=== PATIENT | male | born 1955 | race Caucasian/White ===

== ENCOUNTER 2020-05-13 19:53 | Inpatient (IN) | payer MEDICARE, BC, SELFPAY ==
[2020-05-13 20:00] VITALS: BP 144/76; PULSE 104; RESP 16; TEMP 36.6; O2SAT 100; BMI 27.2
[2020-05-13 22:28] VITALS: BP 132/84; PULSE 99; RESP 17; TEMP 36.8; O2SAT 98
--- NOTE | 2020-05-13 22:37 | ED.ABDPAIN ---
HPI - Abdominal Pain General Chief Complaint: Abdominal Pain Stated Complaint: ?hernia Time Seen by Provider: 05/13/20 22:34 Source: patient Mode of arrival: ambulatory Limitations: no limitations History of Present Illness HPI narrative: This is a 65-year-old male without significant past medical history who presents with worsening right inguinal pain for the past 2 weeks and a swelling at the left inguinal region without associated fevers, chills, nausea, vomiting, obstipation, and reports that he is able to continue having bowel movements and denies any urinary pain/ burning / frequency. He states that he had his left inguinal hernia repaired in November and that this swelling on the right he has been able to reduce on occasion by lying on his back but it has become increasingly painful and today reports sharp pain. Last meal was 5 hours ago. Related Data Home Medications Medication Instructions Recorded Confirmed clonazepam 1 tab PO TID PRN 05/14/20 05/14/20 dextroamphetamine-amphetamine 2 tab PO BID 05/14/20 05/14/20 lamotrigine 2 tab PO DAILY 05/14/20 05/14/20 Allergies Allergy/AdvReac Type Severity Reaction Status Date / Time flaxseed [FLAXSEED] Allergy Unknown SWELLING Verified 05/14/20 00:41 Sulfa (Sulfonamide Allergy Unknown UNKNOWN Verified 05/14/20 00:41 Antibiotics) [SULFA (SULFONAMIDE ANTIBIOTICS)] Review of Systems Review of Systems Pertinent positives and negatives as stated in HPI 10 point review of systems is otherwise negative. Physical Exam Vital Signs: Vital Signs: Vital Signs Temp Pulse Resp BP Pulse Ox 05/14/20 00:32 85 18 119/75 96 05/13/20 22:28 98.3 F 99 17 132/84 98 05/13/20 20:00 97.8 F 104 H 16 144/76 H 100 Body Mass Index 27.2 VITAL SIGNS: Reviewed. GENERAL: Well developed, well nourished, in no acute distress. HEAD: Normocephalic/atraumatic, EYES: PERRLA, EOMI intact without pain, no nystagmus/pallor/icterus noted EARS: Ext canals without abnormality, TMs non-bulging and non-erythematous NOSE: Nares patent bilateral OROPHARYNX: no oral lesions noted, posterior pharynx clear and non-erythematous without noted tonsillar enlargement/erythema/exudates NECK: Supple, no adenopathy LUNGS: Normal breath sounds. No adventitious sounds or accessory muscle use. SpO2<100> CARDIOVASCULAR: Regular rate and rhythm without noted murmurs, no JVD or lower extremity edema. ABDOMEN: Soft, non-tender, non-distended with bowel sounds. No rigidity. No guarding. 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 MUSCULOSKELETAL: No tenderness, deformities, or effusions noted on gross inspection. EXTREMITIES: No cyanosis, clubbing or edema. SKIN: Inspection of the skin reveals no rashes, ulcerations, jaundice, pallor, or petechiae. NEUROLOGIC: Alert and oriented x 4. Strength and sensation to light touch were grossly intact x 4. Course Course Course Narrative: This is a 65-year-old male with history and clinical presentation consistent with right inguinal hernia possibly strangulated or incarcerated , but doubt obstructed. On review of all investigations there is no evidence of acute abnormalities other than a lactic acidosis which by proxy supports the idea that this hernia may be strangulating. However, on CT scan there is no evidence of free fluid, obstruction, or appearance of bowel loops within hernial sac. Will discuss the case with surgery since patient is clearly symptomatic when in any other position other than recumbent and would likely benefit from repair. 0030: I discussed the case with Dr. Ya and he agrees with admission. Patient was then informed of the plan. MDM - Abdominal Pain Lab Data Result diagrams: 05/13/20 22:51 05/13/20 22:51 Labs: Lab Results 05/13/20 05/13/20 05/13/20 Range/Units 22:51 22:51 22:51 WBC 7.6 (4.8-10.8) X10*3/uL RBC 3.98 L (4.60-5.80) X10*6/uL Hgb 11.8 L (14.0-18.0) g/dl Hct 37.8 L (42-52) % MCV 95.0 (80-98) fL MCH 29.6 (27.0-33.0) pg MCHC 31.2 (31.0-36.0) g/dl RDW 16.0 (11.0-16.0) % Plt Count 193 (160-400) X10*3/uL MPV 9.9 (9.4-12.4) fL Immature Gran % (Auto) 0.1 (0.0-0.4) % Neut % (Auto) 59.4 (45-73) % Lymph % (Auto) 28.8 (20-40) % [place] % (Auto) 9.9 (2-11) % Eos % (Auto) 1.4 (0-4) % Baso % (Auto) 0.4 (0-2) % Lymph # (Auto) 2.2 (1.2-4.9) X10*3/uL [place] # (Auto) 0.8 (0.1-1.2) X10*3/uL Eos # (Auto) 0.1 (0.0-0.4) X10*3/uL Baso # (Auto) 0.0 (0.0-0.2) X10*3/uL Abs Immat Gran (auto) 0.01 (0.00-0.03) X10*3/uL Absolute Neuts (auto) 4.5 (2.0-8.3) X10*3/uL Absolute Nucleated RBC 0.000 (0.0-0.012) X10*3/uL Nucleated RBC % (auto) 0.0 (0.0-0.2) /100WBC PT 11.4 (10.8-13.0) SEC INR 1.0 (0.9-1.1) Sodium 137 (135-145) mmol/L Potassium 3.9 (3.3-5.1) mmol/l Chloride 102 (96-108) mmol/L Carbon Dioxide 23 (22-29) mmol/L Anion Gap 16 (12-20) BUN 14 (9-16) mg/dL Creatinine 0.80 (0.5-1.4) mg/dL Estim Creat Clear Calc 95.0 Estimated GFR > 60 Random Glucose 148 H (60-115) mg/dL Lactic Acid (0.5-2.0) mmol/L Calcium 8.2 L (8.4-10.2) mg/dL Total Bilirubin 0.6 (0.0-1.0) mg/dL AST 55 H (5-37) U/L ALT 65 H (0-40) U/L Alkaline Phosphatase 68 (39-117) U/L Total Protein 6.8 (6.5-8.0) g/dL Albumin 4.1 (3.5-5.0) g/dL 05/13/20 Range/Units 22:51 WBC (4.8-10.8) X10*3/uL RBC (4.60-5.80) X10*6/uL Hgb (14.0-18.0) g/dl Hct (42-52) % MCV (80-98) fL MCH (27.0-33.0) pg MCHC (31.0-36.0) g/dl RDW (11.0-16.0) % Plt Count (160-400) X10*3/uL MPV (9.4-12.4) fL Immature Gran % (Auto) (0.0-0.4) % Neut % (Auto) (45-73) % Lymph % (Auto) (20-40) % [place] % (Auto) (2-11) % Eos % (Auto) (0-4) % Baso % (Auto) (0-2) % Lymph # (Auto) (1.2-4.9) X10*3/uL [place] # (Auto) (0.1-1.2) X10*3/uL Eos # (Auto) (0.0-0.4) X10*3/uL Baso # (Auto) (0.0-0.2) X10*3/uL Abs Immat Gran (auto) (0.00-0.03) X10*3/uL Absolute Neuts (auto) (2.0-8.3) X10*3/uL Absolute Nucleated RBC (0.0-0.012) X10*3/uL Nucleated RBC % (auto) (0.0-0.2) /100WBC PT (10.8-13.0) SEC INR (0.9-1.1) Sodium (135-145) mmol/L Potassium (3.3-5.1) mmol/l Chloride (96-108) mmol/L Carbon Dioxide (22-29) mmol/L Anion Gap (12-20) BUN (9-16) mg/dL Creatinine (0.5-1.4) mg/dL Estim Creat Clear Calc Estimated GFR Random Glucose (60-115) mg/dL Lactic Acid 2.9 H* (0.5-2.0) mmol/L Calcium (8.4-10.2) mg/dL Total Bilirubin (0.0-1.0) mg/dL AST (5-37) U/L ALT (0-40) U/L Alkaline Phosphatase (39-117) U/L Total Protein (6.5-8.0) g/dL Albumin (3.5-5.0) g/dL Discharge Plan Discharge Clinical Impression: Hernia, inguinal, right Patient Disposition: Admitted As Inpatient [facility] Past Medical History Source: nursing notes reviewed Medical History Achilles rupture, left Appendicitis Depression Inguinal hernia Surgical History Previous back surgery Social History Social History Smoking Status: Never smoker Use of substances other than those prescribed or required for medical reasons: No Advance Directives: No Advance Directives Information Provided: Yes
[2020-05-13 23:00] LABS: MANUAL DIFF FLAG NO
[2020-05-13 23:01] LABS: Basophils Percent Auto 0.4 % (0-2); Eosinophils Absolute Auto 0.1 X10*3/uL (0.0-0.4); Eosinophils Percent Auto 1.4 % (0-4); Hematocrit 37.8 % (42-52); Hemoglobin 11.8 g/dl (14.0-18.0); Imm Gran Abs Auto 0.01 X10*3/uL (0.00-0.03); Imm Gran Pct Auto 0.1 % (0.0-0.4); Lymphocytes Absolute Auto 2.2 X10*3/uL (1.2-4.9); Lymphocytes Percent Auto 28.8 % (20-40); Mean Corpuscular HGB Conc 31.2 g/dl (31.0-36.0); Mean Corpuscular Hemoglobin 29.6 pg (27.0-33.0); Mean Platelet Volume 9.9 fL (9.4-12.4); Monocytes Absolute Auto 0.8 X10*3/uL (0.1-1.2); Monocytes Percent Auto 9.9 % (2-11); Neutrophils Absolute Auto 4.5 X10*3/uL (2.0-8.3); Neutrophils Percent Auto 59.4 % (45-73); Platelet Count 193 X10*3/uL (160-400); Red Blood Count 3.98 X10*6/uL (4.60-5.80); White Blood Count 7.6 X10*3/uL (4.8-10.8)
[2020-05-13] MEDS: Ketorolac Tromethamine 15 MG/ML VIAL IVPUSH (23:02)
[2020-05-13] MEDS: Acetaminophen 325 MG TABLET 975 MG PO (23:02)
[2020-05-13 23:08] LABS: Prothrombin Time 11.4 SEC (10.8-13.0)
[2020-05-13 23:24] LABS: Alanine Aminotransferase 65 U/L (0-40); Albumin Level 4.1 g/dL (3.5-5.0); Alkaline Phosphatase 68 U/L (39-117); Anion Gap 16 (12-20); Aspartate Amino Transferase 55 U/L (5-37); Bilirubin Total 0.6 mg/dL (0.0-1.0); Blood Urea Nitrogen 14 mg/dL (9-16); Calcium 8.2 mg/dL (8.4-10.2); Carbon Dioxide 23 mmol/L (22-29); Chloride 102 mmol/L (96-108); Estimated Glomerular Filt Rate > 60; Glucose Random 148 mg/dL (60-115); Potassium 3.9 mmol/l (3.3-5.1); Sodium 137 mmol/L (135-145); Total Protein 6.8 g/dL (6.5-8.0)
--- NOTE | 2020-05-13 23:26 | CT_ITS ---
EXAMINATION: CT ABDOMEN AND PELVIS WITH CONTRAST CLINICAL INFORMATION: Right inguinal hernia and pain. COMPARISON: 11/16/2019. TECHNIQUE: Contiguous axial thin section helical images of the abdomen and pelvis were performed following the administration of 85 mL of intravenous Omnipaque 350. The data set was reformatted in the coronal and sagittal planes and reviewed on an independent workstation. DLP: 666 mGy-cm. FINDINGS: The visualized lung bases are clear. The visualized portions of the heart are unremarkable. There is a large hiatal hernia. There are small bilateral Bochdalek hernias. The liver is of normal size and diffuse decreased attenuation without focal lesions nor intrahepatic biliary ductal dilation. A normal gallbladder is identified. There is no wall thickening or discernible pericholecystic fluid. The spleen, pancreas, adrenal glands are unremarkable. Both kidneys are of normal size and attenuation without hydronephrosis or nephrolithiasis. Following the administration of IV contrast, prompt symmetric nephrograms are displayed. There is no abdominal free fluid. There is neither mesenteric nor retroperitoneal lymphadenopathy. There is diverticulosis without evidence of diverticulitis; otherwise, unremarkable unopacified loops of small and large bowel are identified. There is no pelvic free fluid. The urinary bladder is unremarkable. There is neither pelvic nor inguinal lymphadenopathy. Bone windows: Neither sclerotic nor lytic bone lesions are identified. A right hip prosthesis is intact. CT/CT abdomen pelvis w con IMPRESSION: No evidence for acute abdominal or pelvic inflammatory or infectious processes. Hepatic steatosis. Hiatal hernia. Diverticulosis without evidence of diverticulitis. Automated exposure control (Care Dose) Adjustment of the mA and/or kv according to patient size (this includes techniques or standardized protocols for targeted exams where dose is matched to indication / reason for exam; i.e. extremities or head).
[2020-05-13 23:31] LABS: Lactic Acid 2.9 mmol/L (0.5-2.0)
[2020-05-13] MEDS: iohexoL 350 MG/ML 100 ML INFUS..BTL 85 ML IV (23:59)
[2020-05-14] VITALS (13 sets, daily range): BP systolic 119–154; BP diastolic 72–88; PULSE 54–100; RESP 14–20; TEMP 35.9–36.8; O2SAT 93–98; BMI 27.2
[2020-05-14] MEDS: 0.9 % Sodium Chloride 1,000 ML 1000 ML IV (00:31)
--- NOTE | 2020-05-14 00:33 | PC.NURSE ---
PT MEDICATED PER MAR, IVF HUNG AND INFUSING WITHOUT DIFFICULTY. AWAITING RESULTS. AWARE OF PLAN OF CARE.
[2020-05-14 00:53] LABS: Glucose Urine UA NEG (NEG); Leukocyte Esterase Urine NEG (NEG); Nitrite Urine NEG (NEG); Urine Blood NEG (NEG); Urine Ketones NEG (NEG); Urine Protein NEG (NEG-TRACE)
[2020-05-14 00:54] LABS: Appearance Urine CLEAR; Color Urine YELLOW
[2020-05-14 00:59] LABS: Reflex Lactate? Lactic Acid Added
[2020-05-14 02:07] LABS: ~Lactic Acid-LAB USE ONLY 1.6 mmol/L (0.5-2.0)
[2020-05-14] MEDS: Dextrose 5 % and 0.45 % NaCl 1,000 ML 100 ML IVCONT ×3 (02:26→23:33)
[2020-05-14] MEDS: Morphine Sulfate 4 MG/ML CARTRIDGE 3 MG IVPUSH ×2 (02:33→06:03)
[2020-05-14 02:38] LABS: SARS COV2 PCR INHOUSE NEGATIVE (Negative)
--- NOTE | 2020-05-14 09:19 | MHC.CM.PN ---
pt lives c his elder parents for whom he cares for . he is independent in his care. 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 pt has a sister and brother that live in the area. his sister is now stepping up as caregiver for his parents during his hospitalization and recovery. one of his siblings will provide transportation at [place]. pt reports that he has had a hernia repair on the opposite side and is comfortable c the expectations of what he will have to go through c this repair and recover. pt denies the need for vna at ut. dc plan is home no svcs. cm to cont. to follow.
[2020-05-14] MEDS: clonazePAM 1 MG TABLET PO (09:26)
--- NOTE | 2020-05-14 10:21 | PM.HPGS ---
History of Present Illness History of Present Illness Chief complaint: RECURRENT INGUINAL HERNIA Narrative: Alexei Kennedy is a 65 year old male Presenting with complaints of a lump in the right groin which has been present for several months but has been increasing in severity. He has a previous history of a left inguinal hernia repaired several years ago with mesh. He feels the current symptoms are similar. He has been able to reduce the hernia up until yesterday when the hernia was not reducible he subsequently presented to the emergency department with complaints of increased pain on a painful lump. In the emergency department he was noted to have a large right inguinal hernia without overlying skin changes. After giving the patient some pain medication the hernia was able to be reduced. Subsequent CT of the abdomen and pelvis confirmed a right inguinal hernia. He is admitted to the surgical service for treatment of this incarcerated right inguinal hernia. Review of Systems Constitutional: Constitutional: Denies chills, Denies fever(s), Denies headache(s) and Denies poor appetite ENT: Denies dizziness and Denies headache(s) Cardiovascular: Cardiovascular: Denies chest pain, Denies rapid heart rate, Denies palpitations and Denies slow heart rate Respiratory: Respiratory: Denies chest congestion, Denies cough, Denies pain on inspiration and Denies wheezing Gastrointestinal: Gastrointestinal: Reports abdominal pain, Denies bloating, Denies change in stool character, Denies constipation, Denies diarrhea, Denies nausea, Denies vomiting and Denies hematemesis Musculoskeletal: Musculoskeletal: Denies back pain, Denies arthralgias, Denies joint swelling and Denies numbness Integumentary/Breasts: Skin/Breast: Denies change in pigmentation, Denies erythema and Denies rash Neurologic: Denies confusion, Denies dizziness, Denies headache(s) and Denies numbness Psychiatric: Psychiatric: Denies anxiety, Denies confusion and Denies depression Endocrine: Endocrine: Denies palpitations Hematologic/Lymphatic: Hematologic/Lymphatic: Denies easy bleeding, Denies easy bruising and Denies lymphadenopathy Allergic/Immunologic: Allergic/Immunologic: Denies wheezing PMFSH Past Medical History Medical History Achilles rupture, left Appendicitis Depression Inguinal hernia Surgical History Surgical History Previous back surgery Social History Social History Household Members: Family Housing: Apartment Smoking Status: Never smoker Use of substances other than those prescribed or required for medical reasons: No Have you been hit, kicked, punched, or otherwise hurt by someone within the past year? If so, by whom?: No Is there a partner from a previous relationship who is making you feel unsafe now?: No Advance Directives: No Advance Directives Information Provided: Yes Do you have thoughts of harming others: None Recently lost weight without trying: No service: No Current occupational status: retired [employer] Allergies Allergy/AdvReac Type Severity Reaction Status Date / Time flaxseed [FLAXSEED] Allergy Unknown SWELLING Verified 05/14/20 00:41 Sulfa (Sulfonamide Allergy Unknown UNKNOWN Verified 05/14/20 00:41 Antibiotics) [SULFA (SULFONAMIDE ANTIBIOTICS)] Home Medications Medication Instructions Recorded Confirmed Type clonazepam 1 tab PO TID PRN 05/14/20 05/14/20 History dextroamphetamine-amphetamine 2 tab PO BID 05/14/20 05/14/20 History lamotrigine 2 tab PO DAILY 05/14/20 05/14/20 History Physical Exam Vital Signs: Vital Signs: Vital Signs Temp Pulse Resp BP Pulse Ox 05/14/20 07:58 64 18 138/79 97 05/14/20 07:52 97.5 F 68 18 138/79 97 05/14/20 02:06 98.2 F 69 19 123/75 95 05/14/20 00:32 85 18 119/75 96 05/13/20 22:28 98.3 F 99 17 132/84 98 05/13/20 20:00 97.8 F 104 H 16 144/76 H 100 Body Mass Index 27.2 Const: General: No confusion Nutritional Appearance: well nourished Orientation/consciousness: No confusion Eyes: Sclerae: sclerae normal EOM: EOMs intact bilaterally Neck: Neck: Yes normal visual inspection Resp: Effort & Inspection: normal respiratory effort, no cough and no respiratory distress Cardio: Jugular venous distension: no JVD Rate: regular rate Rhythm: regular rhythm GI: Other: Palpable tenderness in the right groin with hernia noted with Valsalva maneuvers. The hernia does reduce with light pressure. No hernia noted on the left side. Well-healed incision is noted in that location. Inspection: Yes normal to inspection Palpation (GI): Soft to palpation, Tenderness to palpation present (GI), no guarding and not rigid Percussion: Yes normal to percussion Auscultation: normal bowel sounds Abdomen image: 1. Site of right inguinal hernia Skin: General skin exam: dry skin Rashes: no rashes Neuro: General: No confusion Extrem: General: Yes no clubbing, cyanosis or edema Right upper extremity: normal capillary refill Left upper extremity: full ROM Results Results Labs: Short CBC 05/13/20 Range/Units 22:51 WBC 7.6 (4.8-10.8) X10*3/uL Hgb 11.8 L (14.0-18.0) g/dl Hct 37.8 L (42-52) % Plt Count 193 (160-400) X10*3/uL BMP 05/13/20 22:51 Sodium 137 Potassium 3.9 Chloride 102 Carbon Dioxide 23 BUN 14 Creatinine 0.80 Calcium 8.2 L Liver Function 05/13/20 Range/Units 22:51 Total Bilirubin 0.6 (0.0-1.0) mg/dL AST 55 H (5-37) U/L ALT 65 H (0-40) U/L Alkaline Phosphatase 68 (39-117) U/L Albumin 4.1 (3.5-5.0) g/dL Urine 05/14/20 Range/Units 00:46 Urine Color YELLOW Urine Appearance CLEAR Urine pH 6.0 (5.0-8.0) Ur Specific [place] 1.010 (1.005-1.025) Urine Protein NEG (NEG-TRACE) MG/DL Urine Glucose (UA) NEG (NEG) MG/DL Assessment and Plan (1) Hernia, inguinal, right: Status: Acute Patient presents with an incarcerated right inguinal hernia that was reduced in the emergency department. CT of the abdomen and pelvis confirms the right inguinal hernia with no incarceration of bowel. I recommended repair of this right inguinal hernia with mesh and after discussion of the procedure, risks, and alternatives, consents to the surgery. He will be added onto the OR schedule for today.
[2020-05-14] MEDS: ceFAZolin Sodium/Dextrose,Iso 2 GM/50 ML PIGGYBACK IV (11:40)
--- NOTE | 2020-05-14 11:50 | HO.ANESPROP2 ---
FORM[facility]LY [facility], [facility] Past Medical History Medical History Achilles rupture, left Appendicitis Depression Inguinal hernia Surgical History Surgical History History of right hip replacement Previous back surgery Social History Social History Household Members: Family Housing: Apartment Smoking Status: Never smoker Use of substances other than those prescribed or required for medical reasons: No Currently Displaying Signs/Symptoms of Drug Intoxication Withdrawal: No Have you been hit, kicked, punched, or otherwise hurt by someone within the past year? If so, by whom?: No Is there a partner from a previous relationship who is making you feel unsafe now?: No Advance Directives: No Advance Directives Information Provided: Yes Do you have thoughts of harming others: None Recently lost weight without trying: No service: No Current occupational status: retired Meds Allergies Allergy/AdvReac Type Severity Reaction Status Date / Time flaxseed [FLAXSEED] Allergy Unknown SWELLING Verified 05/14/20 00:41 Sulfa (Sulfonamide Allergy Unknown UNKNOWN Verified 05/14/20 00:41 Antibiotics) [SULFA (SULFONAMIDE ANTIBIOTICS)] Home Medications Medication Instructions Recorded Confirmed Type clonazepam 1 tab PO TID PRN 05/14/20 05/14/20 History dextroamphetamine-amphetamine 2 tab PO BID 05/14/20 05/14/20 History lamotrigine 2 tab PO DAILY 05/14/20 05/14/20 History Exam Exam Date and Time: May 14, 2020 1150 Height,Weight and Vital Signs: Height 5 ft 10 in Weight 86.183 kg Last Vital Signs Temp 97.2 F 05/14/20 11:11 Pulse 60 05/14/20 11:11 Resp 16 05/14/20 11:11 BP 133/72 05/14/20 11:11 Pulse Ox 98 05/14/20 11:11 Pertinent Lab Results Pertinent Lab Results: Laboratory Tests 05/13/20 05/13/20 05/13/20 22:51 22:51 22:51 WBC 7.6 RBC 3.98 L Hgb 11.8 L Hct 37.8 L MCV 95.0 MCH 29.6 MCHC 31.2 RDW 16.0 Plt Count 193 MPV 9.9 Immature Gran % (Auto) 0.1 Neut % (Auto) 59.4 Lymph % (Auto) 28.8 [place] % (Auto) 9.9 Eos % (Auto) 1.4 Baso % (Auto) 0.4 Lymph # (Auto) 2.2 [place] # (Auto) 0.8 Eos # (Auto) 0.1 Baso # (Auto) 0.0 Abs Immat Gran (auto) 0.01 Absolute Neuts (auto) 4.5 Absolute Nucleated RBC 0.000 Nucleated RBC % (auto) 0.0 PT 11.4 INR 1.0 Sodium 137 Potassium 3.9 Chloride 102 Carbon Dioxide 23 Anion Gap 16 BUN 14 Creatinine 0.80 Estim Creat Clear Calc 95.0 Estimated GFR > 60 Random Glucose 148 H Lactic Acid Lactic Acid Fup @ 2Hr Calcium 8.2 L Total Bilirubin 0.6 AST 55 H ALT 65 H Alkaline Phosphatase 68 Total Protein 6.8 Albumin 4.1 Urine Color Urine Appearance Urine pH Ur Specific [place] Urine Protein Urine Glucose (UA) Urine Ketones Urine Blood Urine Nitrite Ur Leukocyte Esterase Coronavirus (PCR) 05/13/20 05/14/20 05/14/20 22:51 00:46 01:21 WBC RBC Hgb Hct MCV MCH MCHC RDW Plt Count MPV Immature Gran % (Auto) Neut % (Auto) Lymph % (Auto) [place] % (Auto) Eos % (Auto) Baso % (Auto) Lymph # (Auto) [place] # (Auto) Eos # (Auto) Baso # (Auto) Abs Immat Gran (auto) Absolute Neuts (auto) Absolute Nucleated RBC Nucleated RBC % (auto) PT INR Sodium Potassium Chloride Carbon Dioxide Anion Gap BUN Creatinine Estim Creat Clear Calc Estimated GFR Random Glucose Lactic Acid 2.9 H* Lactic Acid Fup @ 2Hr Calcium Total Bilirubin AST ALT Alkaline Phosphatase Total Protein Albumin Urine Color YELLOW Urine Appearance CLEAR Urine pH 6.0 Ur Specific [place] 1.010 Urine Protein NEG Urine Glucose (UA) NEG Urine Ketones NEG Urine Blood NEG Urine Nitrite NEG Ur Leukocyte Esterase NEG Coronavirus (PCR) NEGATIVE 05/14/20 01:44 WBC RBC Hgb Hct MCV MCH MCHC RDW Plt Count MPV Immature Gran % (Auto) Neut % (Auto) Lymph % (Auto) [place] % (Auto) Eos % (Auto) Baso % (Auto) Lymph # (Auto) [place] # (Auto) Eos # (Auto) Baso # (Auto) Abs Immat Gran (auto) Absolute Neuts (auto) Absolute Nucleated RBC Nucleated RBC % (auto) PT INR Sodium Potassium Chloride Carbon Dioxide Anion Gap BUN Creatinine Estim Creat Clear Calc Estimated GFR Random Glucose Lactic Acid Lactic Acid Fup @ 2Hr 1.6 Calcium Total Bilirubin AST ALT Alkaline Phosphatase Total Protein Albumin Urine Color Urine Appearance Urine pH Ur Specific [place] Urine Protein Urine Glucose (UA) Urine Ketones Urine Blood Urine Nitrite Ur Leukocyte Esterase Coronavirus (PCR) Airway Mallampati Class: II TM Dist: >3cm Neck ROM: Full Assessment and Plan Assessment Anesthesia Assessment: Anesthesia Plan Discussed and Chart Reviewed Final Anesthetic Review NPO: Yes ASA Class: II Final Preanesthetic Review: No Changes in Pt Med Stat, Meds/Allgs Chart Reviewed, Consent Obtained/Reviewed and Anes Risks/Benef Reviewed Patient Risk: Low Procedure Risk: Low Assessment/Block/Sedation in SS: Assess/Block/Sedation-SS Anesthetic Plan Anesthetic Plan: GA Disposition: Standard PACU
--- NOTE | 2020-05-14 12:20 | MHC.SHP ---
Pre-Procedural Eval Section A The patient is an INPATIENT: Yes Changes since office visit: Yes Patient answered all questions; No Cold of Flu in the past 2 weeks, No New Medical Problems and No Changes in Medication The History & Physical has been completed within 30 days and I have reviewed it.: Yes Section B Chief Complaint: RECURRENT INGUINAL HERNIA Allergies: Allergies Allergy/AdvReac Type Severity Reaction Status Date / Time flaxseed [FLAXSEED] Allergy Unknown SWELLING Verified 05/14/20 00:41 Sulfa (Sulfonamide Allergy Unknown UNKNOWN Verified 05/14/20 00:41 Antibiotics) [SULFA (SULFONAMIDE ANTIBIOTICS)] Plan Diagnosis/Plan: Unchanged Patient has been examined and remains a candidate for the planned procedure
--- NOTE | 2020-05-14 13:41 | PM.OP ---
Brief Operative Note Date of procedure: 05/14/20 Pre-op diagnosis: Incarcerated right inguinal hernia Post-op diagnosis: same Procedure: Repair of right inguinal hernia with mesh Implants: PHS extended Surgeon: Aman Ya MD Anesthesia: GLMA Estimated blood loss (mL): 10 Pathology: other (lipoma, hernia sac) Condition: stable Disposition: PACU
--- NOTE | 2020-05-14 13:44 | W.PM.OPN ---
Operative Note Operative Note Narrative: Preoperative diagnosis: Right inguinal hernia, incarcerated Postoperative diagnosis: Same Procedure: Repair of right inguinal hernia with mesh Surgeon: Aman Ya MD Business Development Executive: None Anesthesia: General LMA Indications for procedure: 65-year-old male with a previous history of a left inguinal hernia now presenting with a right inguinal hernia which is causing discomfort and was found to be non reducible. He presented to the emergency department at which point was reduced after administering pain medication. He presents now for repair of this incarcerated hernia. Operative findings: Patient was found to have a large indirect right inguinal hernia without incarcerated bowel. There is also weakness of the inguinal floor. Specimen: Hernia sac, lipoma of the cord Estimated blood loss: 10 mL Complications: None Procedure details: The patient was brought to the OR placed in a supine position. After administering general anesthesia the patient's abdomen was prepped with ChloraPrep and draped in a sterile fashion. A surgical time-out was called and consent confirmed. Patient received preoperative antibiotics and Venodyne boots were place. Local anesthesia consisting of 0.75% Sensorcaine with epinephrine was infiltrated above the right inguinal ligament. Incision was then made with a 15 blade carried out through subcutaneous tissue past Alcira's fashion up to the external oblique aponeurosis. This was then incised with scalpel widened with the Metzenbaum scissors. Spermatic cord was then dissected free from the inguinal canal and retracted with a Pop drain. A large indirect hernia was immediately evident. Fibers of the cremasteric muscle were and a large lipoma of the cord removed from the spermatic cord. This was ligated at the base and excised. This was sent as a specimen. Hernia sac was then identified slightly superior to this. The sac was dissected free down to the internal ring open and its contents reduced. The sac was then ligated with a 0 Polysorb suture and excised. This was sent as a specimen as well. Attention was then directed to the floor of the inguinal canal. Fibers of the internal oblique aponeurosis and transversalis aponeurosis were divided between Allis clamps. The preperitoneal space was then entered widened with the open Ray-Aida 4 x 4. a an extended PHS large mesh was obtained. The circular underlay was placed in the preperitoneal space and the overlay secured to the inguinal canal at the pubic tubercle, conjoined tendon, and shelving edge of the inguinal ligament using 0 Polysorb sutures. A slit was made in the mesh and encircled around the spermatic cord at the internal ring. This was secured to the shelving edge of the inguinal ligament using 0 Polysorb suture. The incision was then irrigated with saline solution and suctioned dry. Additional local anesthesia was infiltrated the subcutaneous tissue at this time. External aponeurosis was then closed using a 2-0 Polysorb suture. Alcira's fascia and dermis were reapproximated using interrupted 3-0 Polysorb sutures. Skin was then closed using a running subcuticular 4-0 Polysorb suture. The patient tolerated the procedure well. Sponge, instrument, and needle counts were reported as correct. Patient was transferred to PACU in stable condition.
--- NOTE | 2020-05-14 16:00 | P.CONIM_ITS ---
History of Present Illness Data of Consult Service Date: 05/14/20 <SUZANNE Griffith - Last Filed: 05/14/20 16:18> Requesting physician: Aman Ya <SUZANNE Griffith - Last Filed: 05/14/20 16:18> Primary Care Provider: [facility] <SUZANNE Griffith - Last Filed: 05/14/20 16:18> HPI Reason for consult: alcohol use <SUZANNE Griffith - Last Filed: 05/14/20 16:18> this is a 65-year-old male who presented to the emergency department with abdominal pain. He has long-standing history inguinal hernia in the emergency department he was diagnosed with incarcerated inguinal hernia. he was admitted to the surgical service and taken to the OR for repair. the hospitalist service were consulted due to heavy alcohol use and concern for for possible withdrawal. Patient reports drinking 4 mixed drinks every other day. His last drink was 2 days ago. He denies any history of alcohol withdrawl in the past. currently has no specific complaints. <SUZANNE Griffith - Last Filed: 05/14/20 16:18> Review of Systems Review of Systems: Yes all other systems are reviewed and are negative <SUZANNE Griffith - Last Filed: 05/14/20 16:18> Constitutional: Constitutional: Denies chills <SUZANNE Griffith - Last Filed: 05/14/20 16:18> Cardiovascular: Cardiovascular: Denies chest pain, Denies palpitations and Denies dyspnea <SUZANNE Griffith - Last Filed: 05/14/20 16:18> Respiratory: Respiratory: Denies dyspnea <SUZANNE Griffith - Last Filed: 05/14/20 16:18> Endocrine: Endocrine: Denies palpitations <SUZANNE Griffith - Last Filed: 05/14/20 16:18> [facility] Medical History: Medical History (Updated 05/14/20 @ 16:06 by SUZANNE Griffith) Achilles rupture, left Alcohol use Appendicitis Depression Inguinal hernia <SUZANNE Griffith Last Filed: 05/14/20 16:18> Family History: Family History (Updated 05/14/20 @ 16:05 by SUZANNE Girffith) Other No history of heart disease <SUZANNE Griffith - Last Filed: 05/14/20 16:18> Family history: reviewed and not pertinent <SUZANNE Griffith - Last Filed: 05/14/20 16:18> Surgical History: Surgical History H/O right inguinal hernia repair History of right hip replacement Previous back surgery <SUZANNE Griffith - Last Filed: 05/14/20 16:18> Social History: Social History (Updated 05/14/20 @ 16:06 by SUZANNE Griffith) Household Members: Family Housing: Apartment Alcohol intake: current Smoking Status: Never smoker Use of substances other than those prescribed or required for medical reasons: No Currently Displaying Signs/Symptoms of Drug Intoxication Withdrawal: No Have you been hit, kicked, punched, or otherwise hurt by someone within the past year? If so, by whom?: No Is there a partner from a previous relationship who is making you feel unsafe now?: No Advance Directives: No Advance Directives Information Provided: Yes Do you have thoughts of harming others: None Do you have a plan to hurt others: No Plan Recently lost weight without trying: No service: No Current occupational status: retired <SUZANNE Griffith - Last Filed: 05/14/20 16:18> Meds Allergies/Adverse reactions: Allergies Allergy/AdvReac Type Severity Reaction Status Date / Time flaxseed [FLAXSEED] Allergy Unknown SWELLING Verified 05/14/20 00:41 Sulfa (Sulfonamide Allergy Unknown UNKNOWN Verified 05/14/20 00:41 Antibiotics) [SULFA (SULFONAMIDE ANTIBIOTICS)] <SUZANNE Griffith - Last Filed: 05/14/20 16:18> Home medications: Home Medications Medication Instructions Recorded Confirmed Type clonazepam 1 tab PO TID PRN 05/14/20 05/14/20 History dextroamphetamine-amphetamine 2 tab PO BID 05/14/20 05/14/20 History lamotrigine 2 tab PO DAILY 05/14/20 05/14/20 History <SUZANNE Griffith - Last Filed: 05/14/20 16:18> Physical Exam Vital Signs and Narrative: Vital Signs: Last Vital Signs Temp 97.1 F 05/14/20 15:11 Pulse 54 05/14/20 15:11 Resp 18 05/14/20 15:11 BP 139/87 05/14/20 15:11 Pulse Ox 93 05/14/20 15:11 Body Mass Index 27.2 <SUZANNE Griffith - Last Filed: 05/14/20 16:18> Const: Nutritional Appearance: well nourished <SUZANNE Griffith - Last Filed: 05/14/20 16:18> Orientation/consciousness: patient oriented x3 <SUZANNE Griffith - Last Filed: 05/14/20 16:18> HENMT: Head: Yes normocephalic and Yes atraumatic <SUZANNE Griffith - Last Filed: 05/14/20 16:18> Eyes: Sclerae: sclerae normal <SUZANNE Griffith - Last Filed: 05/14/20 16:18> Chest: Chest palpation & inspection: normal inspection of the chest <SUZANNE Griffith - Last Filed: 05/14/20 16:18> Resp: Effort & Inspection: normal respiratory effort and no respiratory distress <SUZANNE Griffith - Last Filed: 05/14/20 16:18> Auscultation: clear to auscultation bilaterally <SUZANNE Griffith - Last Filed: 05/14/20 16:18> Cardio: Rate: regular rate <SUZANNE Griffith - Last Filed: 05/14/20 16:18> Rhythm: regular rhythm <SUZANNE Griffith - Last Filed: 05/14/20 16:18> GI: Palpation (GI): Soft to palpation and nontender <SUZANNE Griffith - Last Filed: 05/14/20 16:18> Skin: General skin exam: no rashes or lesions noted <SUZANNE Griffith - Last Filed: 05/14/20 16:18> Neuro: General: patient oriented x3 <SUZANNE Griffith - Last Filed: 05/14/20 16:18> Cranial nerves: Yes CN's II-XII intact bilaterally and Yes Bilaterally intact EOM present <SUZANNE Griffith - Last Filed: 05/14/20 16:18> Extrem: General: Yes normal to inspection <SUZANNE Griffith - Last Filed: 05/14/20 16:18> Results Labs Labs: Laboratory Tests 05/13/20 05/13/20 05/13/20 22:51 22:51 22:51 WBC 7.6 RBC 3.98 L Hgb 11.8 L Hct 37.8 L MCV 95.0 MCH 29.6 MCHC 31.2 RDW 16.0 Plt Count 193 MPV 9.9 Immature Gran % (Auto) 0.1 Neut % (Auto) 59.4 Lymph % (Auto) 28.8 [place] % (Auto) 9.9 Eos % (Auto) 1.4 Baso % (Auto) 0.4 Lymph # (Auto) 2.2 [place] # (Auto) 0.8 Eos # (Auto) 0.1 Baso # (Auto) 0.0 Abs Immat Gran (auto) 0.01 Absolute Neuts (auto) 4.5 Absolute Nucleated RBC 0.000 Nucleated RBC % (auto) 0.0 PT 11.4 INR 1.0 Sodium 137 Potassium 3.9 Chloride 102 Carbon Dioxide 23 Anion Gap 16 BUN 14 Creatinine 0.80 Estim Creat Clear Calc 95.0 Estimated GFR > 60 Random Glucose 148 H Lactic Acid Lactic Acid Fup @ 2Hr Calcium 8.2 L Total Bilirubin 0.6 AST 55 H ALT 65 H Alkaline Phosphatase 68 Total Protein 6.8 Albumin 4.1 Urine Color Urine Appearance Urine pH Ur Specific [place] Urine Protein Urine Glucose (UA) Urine Ketones Urine Blood Urine Nitrite Ur Leukocyte Esterase Coronavirus (PCR) 05/13/20 05/14/20 05/14/20 22:51 00:46 01:21 WBC RBC Hgb Hct MCV MCH MCHC RDW Plt Count MPV Immature Gran % (Auto) Neut % (Auto) Lymph % (Auto) [place] % (Auto) Eos % (Auto) Baso % (Auto) Lymph # (Auto) [place] # (Auto) Eos # (Auto) Baso # (Auto) Abs Immat Gran (auto) Absolute Neuts (auto) Absolute Nucleated RBC Nucleated RBC % (auto) PT INR Sodium Potassium Chloride Carbon Dioxide Anion Gap BUN Creatinine Estim Creat Clear Calc Estimated GFR Random Glucose Lactic Acid 2.9 H* Lactic Acid Fup @ 2Hr Calcium Total Bilirubin AST ALT Alkaline Phosphatase Total Protein Albumin Urine Color YELLOW Urine Appearance CLEAR Urine pH 6.0 Ur Specific [place] 1.010 Urine Protein NEG Urine Glucose (UA) NEG Urine Ketones NEG Urine Blood NEG Urine Nitrite NEG Ur Leukocyte Esterase NEG Coronavirus (PCR) NEGATIVE 05/14/20 01:44 WBC RBC Hgb Hct MCV MCH MCHC RDW Plt Count MPV Immature Gran % (Auto) Neut % (Auto) Lymph % (Auto) [place] % (Auto) Eos % (Auto) Baso % (Auto) Lymph # (Auto) [place] # (Auto) Eos # (Auto) Baso # (Auto) Abs Immat Gran (auto) Absolute Neuts (auto) Absolute Nucleated RBC Nucleated RBC % (auto) PT INR Sodium Potassium Chloride Carbon Dioxide Anion Gap BUN Creatinine Estim Creat Clear Calc Estimated GFR Random Glucose Lactic Acid Lactic Acid Fup @ 2Hr 1.6 Calcium Total Bilirubin AST ALT Alkaline Phosphatase Total Protein Albumin Urine Color Urine Appearance Urine pH Ur Specific [place] Urine Protein Urine Glucose (UA) Urine Ketones Urine Blood Urine Nitrite Ur Leukocyte Esterase Coronavirus (PCR) <SUZANNE Griffith - Last Filed: 05/14/20 16:18> Imaging Radiologist's Impressions: Impressions Abdomen/Pelvis CT 05/13/20 23:26 IMPRESSION: No evidence for acute abdominal or pelvic inflammatory or infectious processes. Hepatic steatosis. Hiatal hernia. Diverticulosis without evidence of diverticulitis. Automated exposure control (Care Dose) Adjustment of the mA and/or kv according to patient size (this includes techniques or standardized protocols for targeted exams where dose is matched to indication / reason for exam; i.e. extremities or head). <SUZANNE Griffith - Last Filed: 05/14/20 16:18> Assessment and Plan (1) Alcohol use: Status: Inactive <SUZANNE Griffith - Last Filed: 05/14/20 16:18> (2) Hernia, inguinal, right: Status: Acute <SUZANNE Griffith - Last Filed: 05/14/20 16:18> this is a 65-year-old male with history of depression who presented to the emergency department with abdominal pain found to have incarcerated hernia now status post repair s/p incarcerated hernia repair - management per surgical service alcohol use patient denies daily alcohol use. Denies history of alcohol withdrawal. Does not appear to be in alcohol withdrawal at this time. Vital signs stable. - will start low-dose phenobarbital to prevent alcohol withdrawal. - will recheck BNP now, check magnesium - if significant electrolyte abnormalities or patient becomes tachycardic would consider transfer to telemetry mood patient no longer takes Xanax or Lamictal at home slight elevated in liver transaminases likely related to alcohol use -will trend thank you for allowing us to participate in the care of this patient. We will follow along with you this case was discussed with Dr. Freeman <SUZANNE Griffith - Last Filed: 05/14/20 16:18>
[2020-05-14] MEDS: PHENobarbitaL sodium 130 MG/ML VIAL 175 MG IM (16:54)
[2020-05-14 17:05] LABS: Anion Gap 11 (12-20); Blood Urea Nitrogen 11 mg/dL (9-16); Carbon Dioxide 30 mmol/L (22-29); Chloride 100 mmol/L (96-108); Creatinine Clr Calc Pharmacy 108.6; Estimated Glomerular Filt Rate > 60; Glucose Random 140 mg/dL (60-115); Magnesium 1.9 mg/dL (1.6-2.6); Potassium 4.9 mmol/l (3.3-5.1); Sodium 136 mmol/L (135-145)
[2020-05-14] MEDS: PHENobarbitaL sodium 130 MG/ML VIAL IM ×2 (20:28→23:33)
[2020-05-14] MEDS: Amphetamine Mixed Salts 20 MG TABLET 40 MG PO (20:28)
[2020-05-15] MEDS: Morphine Sulfate 4 MG/ML CARTRIDGE 3 MG IVPUSH ×3 (01:45→18:00)
[2020-05-15 03:40] VITALS: BP 135/83; PULSE 88; RESP 19; TEMP 36.3; O2SAT 98
--- NOTE | 2020-05-15 05:03 | PC.NURSE ---
There was wet noise sounds heard from pt lower lobes. O2 is 95%. No SOB. no respiratory distress. MD notified
[2020-05-15 06:51] LABS: Alanine Aminotransferase 49 U/L (0-40); Albumin Level 3.7 g/dL (3.5-5.0); Alkaline Phosphatase 55 U/L (39-117); Anion Gap 12 (12-20); Aspartate Amino Transferase 34 U/L (5-37); Bilirubin Direct 0.3 mg/dL (0.0-0.5); Bilirubin Total 0.5 mg/dL (0.0-1.0); Blood Urea Nitrogen 9 mg/dL (9-16); Calcium 7.7 mg/dL (8.4-10.2); Carbon Dioxide 24 mmol/L (22-29); Chloride 101 mmol/L (96-108); Creatinine Clr Calc Pharmacy 122.6; Estimated Glomerular Filt Rate > 60; Glucose Random 158 mg/dL (60-115); Potassium 4.2 mmol/l (3.3-5.1); Sodium 133 mmol/L (135-145); Total Protein 6.1 g/dL (6.5-8.0)
[2020-05-15 07:40] VITALS: BP 157/84; PULSE 70; RESP 18; TEMP 36.3; O2SAT 99
--- NOTE | 2020-05-15 09:23 | HO.POSTANES ---
Post Anesthesia Evaluation Post Anesthesia Evaluation Vital Signs: Vital Signs Temp Pulse Resp BP Pulse Ox 05/15/20 07:40 97.4 F 70 18 157/84 H 99 05/15/20 03:40 97.3 F 88 19 135/83 98 05/14/20 23:39 98.3 F 100 20 140/78 H 98 Anesthesia: General Mental Status: Awake Pain Control: Satisfactory Nausea/Vomiting: None Hydration: Adequate Anesthesia-Related Issues: No Anes. Related Issues
--- NOTE | 2020-05-15 09:29 | HO.PM.IMPN ---
Subjective Subjective Date of Service: 05/15/20 Interval History: Seen in f/u for med consult for alcohol dependency, at risk for withdrawal. Not withdrawing right now Review of Systems Gen: no fever Resp: no sob, no cough CV: no chest, no SEGUNDO, no leg edema GI: No n/v, no abd pain Neuro: No confusion Physical Exam Vital Signs: Vital Signs: Last Vital Signs Temp 97.4 F 05/15/20 07:40 Pulse 70 05/15/20 07:40 Resp 18 05/15/20 07:40 BP 157/84 H 05/15/20 07:40 Pulse Ox 99 05/15/20 07:40 Body Mass Index 27.2 Const: Nutritional Appearance: well nourished Orientation/consciousness: patient oriented x3 HENMT: Head: Yes normocephalic and Yes atraumatic Eyes: Sclerae: sclerae normal Chest: Chest palpation & inspection: normal inspection of the chest Resp: Effort & Inspection: normal respiratory effort and no respiratory distress Auscultation: clear to auscultation bilaterally Cardio: Rate: regular rate Rhythm: regular rhythm GI: Palpation (GI): Soft to palpation and nontender Skin: General skin exam: no rashes or lesions noted Neuro: General: patient oriented x3 Cranial nerves: Yes CN's II-XII intact bilaterally and Yes Bilaterally intact EOM present Extrem: General: Yes normal to inspection Objective Data Current Medications Generic Name Dose Route Start Last Admin Trade Name Freq PRN Reason Stop Dose Admin Acetaminophen 650 mg 05/14/20 13:50 Acetaminophen 325 Mg Tablet PO Q6H PRN Pain, Mild (Pain Scale 1-3) Amphetamine/Dextroamphetamine 40 mg 05/14/20 21:00 05/14/20 20:28 Amphetamine Mixed Salts 20 Mg Tablet PO 40 mg BID ROBERTO Administration Folic Acid 1 mg 05/15/20 09:00 Folic Acid 1 Mg Tablet PO DAILY ROBERTO Dextrose/Sodium Chloride 1,000 mls @ 100 mls/hr 05/14/20 00:45 05/14/20 23:33 D51/2ns IVCONT 100 mls/hr .Q10H ROBERTO Administration Magnesium Hydroxide 30 ml 05/14/20 13:50 Milk Of Magnesia 30 Ml Oral.Susp PO DAILY PRN Constipation Medication 1 each 05/15/20 09:00 No Benzodiazepines MISCELLANE DAILY ROBERTO Morphine Sulfate 3 mg 05/14/20 00:54 05/15/20 01:45 Morphine Sulfate 4 Mg/Ml Cartridge IVPUSH 3 mg Q3H PRN Administration Pain, Severe (Pain Scale 7-10) Ondansetron HCl 4 mg 05/14/20 13:50 Ondansetron Hcl 4 Mg/2 Ml Vial IVPUSH Q8H PRN Nausea and Vomiting Pharmacy Consult 1 each 05/14/20 15:56 Consult Rx Etoh Phenob Dosing MISCELLANE ONCE PRN Consult order Protocol Phenobarbital 45 mg 05/15/20 09:00 Phenobarbital 15 Mg Tablet PO 05/16/20 21:01 BID ON LICENSE OF [facility] Phenobarbital 15 mg 05/17/20 09:00 Phenobarbital 15 Mg Tablet PO 05/18/20 21:01 BID ON LICENSE OF [facility] Phenobarbital 15 mg 05/19/20 09:00 Phenobarbital 15 Mg Tablet PO 05/20/20 09:01 DAILY ON LICENSE OF [facility] Sodium Chloride 3 ml 05/14/20 16:00 05/14/20 23:34 0.9 % Sodium Chloride Flush 3 Ml Syringe IVFLUSH Not Given QSHIFT ON LICENSE OF [facility] Thiamine HCl 100 mg 05/15/20 09:00 Thiamine Hcl 100 Mg Tablet PO DAILY ON LICENSE OF [facility] Zolpidem Tartrate 5 mg 05/14/20 13:50 Zolpidem Tartrate 5 Mg Tablet PO BEDTIME PRN Insomnia Labs CBC & Chem 7: 05/13/20 22:51 05/15/20 06:03 Labs: Laboratory Results - last 24 hr 05/14/20 05/15/20 16:08 06:03 Sodium 136 133 L Potassium 4.9 D 4.2 Chloride 100 101 Carbon Dioxide 30 H 24 Anion Gap 11 L 12 BUN 11 9 Creatinine 0.70 0.62 Estim Creat Clear Calc 108.6 122.6 Estimated GFR > 60 > 60 Random Glucose 140 H 158 H Calcium 8.0 L 7.7 L Magnesium 1.9 Total Bilirubin 0.5 Direct Bilirubin 0.3 AST 34 ALT 49 H Alkaline Phosphatase 55 Total Protein 6.1 L Albumin 3.7 Microbiology Microbiology Results: Microbiology 05/13/20 22:51 Blood - Venous Blood Culture - Preliminary No growth after 24 hours. 05/13/20 22:51 Blood - Venous Blood Culture - Preliminary No growth after 24 hours. Assessment and Plan (1) Alcohol use: Status: Inactive (2) Hernia, inguinal, right: Status: Acute Assessment and Plan: 65-year-old male with history of depression who presented to the emergency department with abdominal pain found to have incarcerated hernia now status post repair s/p incarcerated hernia repair - management per surgical service alcohol use patient denies daily alcohol use. Denies history of alcohol withdrawal. Does not appear to be in alcohol withdrawal at this time. Vital signs stable. - continue low-dose phenobarbital to prevent alcohol withdrawal. - electrolytes are ok mood patient no longer takes Xanax or Lamictal at home slight elevated in liver transaminases likely related to alcohol use -will trend
[2020-05-15] MEDS: Amphetamine Mixed Salts 20 MG TABLET 40 MG PO ×2 (10:15→21:37)
[2020-05-15] MEDS: Folic Acid 1 MG TABLET PO (10:16)
[2020-05-15] MEDS: PHENobarbitaL 15 MG TABLET 45 MG PO ×2 (10:16→21:38)
[2020-05-15] MEDS: Thiamine HCL 100 MG TABLET PO (10:17)
[2020-05-15] MEDS: Dextrose 5 % and 0.45 % NaCl 1,000 ML 100 ML IVCONT (10:18)
--- NOTE | 2020-05-15 10:55 | P.PNGS_ITS ---
Subjective Subjective Interval history: Patient feels very very tired, denies significant right inguinal pain. Not very hungry this morning. Physical Exam Vital Signs: Vital Signs: Last Vital Signs Temp 97.4 F 05/15/20 07:40 Pulse 70 05/15/20 07:40 Resp 18 05/15/20 07:40 BP 157/84 H 05/15/20 07:40 Pulse Ox 99 05/15/20 07:40 Body Mass Index 27.2 Const: Other: Sleepy, slurring his words Resp: Other: breathing comfortably on room air, no respiratory distress GI: Other: abdomen is soft, nondistended, nontender, dressings in the right groin are clean and intact without significant swelling. Skin: Other: Warm and dry Extrem: Other: no edema, full range of motion, normal capillary refill Progress Note: A&P Assessment and plan (1) Hernia, inguinal, right: Status: Acute Assessment and Plan: patient tolerated the repair of the right inguinal hernia well. He may be able to be discharged later on today to home. I will reassess in the afternoon to see if he is ready for discharge. Fall Risk Details Current Medications: Current Medications Generic Name Dose Route Start Last Admin Trade Name Freq PRN Reason Stop Dose Admin Acetaminophen 650 mg 05/14/20 13:50 Acetaminophen 325 Mg Tablet PO Q6H PRN Pain, Mild (Pain Scale 1-3) Amphetamine/Dextroamphetamine 40 mg 05/14/20 21:00 05/15/20 10:15 Amphetamine Mixed Salts 20 Mg Tablet PO 40 mg BID ROBERTO Administration Folic Acid 1 mg 05/15/20 09:00 05/15/20 10:16 Folic Acid 1 Mg Tablet PO 1 mg DAILY ROBERTO Administration Dextrose/Sodium Chloride 1,000 mls @ 100 mls/hr 05/14/20 00:45 05/15/20 10:18 D51/2ns IVCONT 100 mls/hr .Q10H ROBERTO Administration Magnesium Hydroxide 30 ml 05/14/20 13:50 Milk Of Magnesia 30 Ml Oral.Susp PO DAILY PRN Constipation Medication 1 each 05/15/20 09:00 No Benzodiazepines MISCELLANE DAILY ROBERTO Morphine Sulfate 3 mg 05/14/20 00:54 05/15/20 10:48 Morphine Sulfate 4 Mg/Ml Cartridge IVPUSH 3 mg Q3H PRN Administration Pain, Severe (Pain Scale 7-10) Ondansetron HCl 4 mg 05/14/20 13:50 Ondansetron Hcl 4 Mg/2 Ml Vial IVPUSH Q8H PRN Nausea and Vomiting Pharmacy Consult 1 each 05/14/20 15:56 Consult Rx Etoh Phenob Dosing MISCELLANE ONCE PRN Consult order Protocol Phenobarbital 45 mg 05/15/20 09:00 05/15/20 10:16 Phenobarbital 15 Mg Tablet PO 05/16/20 21:01 45 mg BID ROBERTO Administration Phenobarbital 15 mg 05/17/20 09:00 Phenobarbital 15 Mg Tablet PO 05/18/20 21:01 BID ROBERTO Phenobarbital 15 mg 05/19/20 09:00 Phenobarbital 15 Mg Tablet PO 05/20/20 09:01 DAILY ROBERTO Sodium Chloride 3 ml 05/14/20 16:00 05/15/20 10:17 0.9 % Sodium Chloride Flush 3 Ml Syringe IVFLUSH Not Given QSHIFT ROBERTO Thiamine HCl 100 mg 05/15/20 09:00 05/15/20 10:17 Thiamine Hcl 100 Mg Tablet PO 100 mg DAILY ROBERTO Administration Zolpidem Tartrate 5 mg 05/14/20 13:50 Zolpidem Tartrate 5 Mg Tablet PO BEDTIME PRN Insomnia Time Spent With Patient Time: Total time spent is greater than 50% in coordination of care (as docume nted) at patient's floor/unit and/or counseling patient: Time with patient: 15 - 24 minutes
[2020-05-15 11:08] VITALS: BP 138/76; PULSE 95; RESP 17; TEMP 36.9; O2SAT 96
[2020-05-15 15:08] VITALS: BP 142/90; PULSE 95; RESP 18; TEMP 36.2; O2SAT 96
[2020-05-15] MEDS: Milk of Magnesia 30 ML ORAL.SUSP PO (18:01)
[2020-05-15 19:21] VITALS: BP 148/83; PULSE 93; RESP 18; TEMP 36.3; O2SAT 98
[2020-05-15] MEDS: 0.9 % Sodium Chloride Flush 3 ML SYRINGE IVFLUSH (21:38)
[2020-05-16] VITALS: BP 144/82; PULSE 68; RESP 18; TEMP 36.7; O2SAT 95
[2020-05-16 04:00] VITALS: BP 142/84; PULSE 69; RESP 18; TEMP 36.7; O2SAT 94
[2020-05-16] MEDS: Dextrose 5 % and 0.45 % NaCl 1,000 ML 100 ML IVCONT (05:34)
[2020-05-16] MEDS: Morphine Sulfate 4 MG/ML CARTRIDGE 3 MG IVPUSH (06:10)
[2020-05-16 07:02] VITALS: BP 129/73; PULSE 72; RESP 18; TEMP 36.4; O2SAT 97
--- NOTE | 2020-05-16 08:28 | MHC.CM.PN ---
Pt to be discharged home today with no services. Pt to self arrange transport
[2020-05-16] MEDS: PHENobarbitaL 15 MG TABLET 45 MG PO (08:51)
[2020-05-16] MEDS: Thiamine HCL 100 MG TABLET PO (08:51)
[2020-05-16] MEDS: Folic Acid 1 MG TABLET PO (08:51)
[2020-05-16] MEDS: Amphetamine Mixed Salts 20 MG TABLET 40 MG PO (08:52)
[2020-05-16] MEDS: 0.9 % Sodium Chloride Flush 3 ML SYRINGE IVFLUSH (08:55)
--- NOTE | 2020-05-16 09:16 | HO.PM.IMPN ---
Subjective Subjective Date of Service: 05/16/20 Interval History: Seen in f/u for med consult for alcohol dependency, at risk for withdrawal. Doing well Physical Exam Vital Signs: Vital Signs: Last Vital Signs Temp 97.5 F 05/16/20 07:02 Pulse 72 05/16/20 07:02 Resp 18 05/16/20 07:02 BP 129/73 05/16/20 07:02 Pulse Ox 97 05/16/20 07:02 Body Mass Index 27.2 Const: Nutritional Appearance: well nourished Orientation/consciousness: patient oriented x3 HENMT: Head: Yes normocephalic and Yes atraumatic Eyes: Sclerae: sclerae normal Chest: Chest palpation & inspection: normal inspection of the chest Resp: Effort & Inspection: normal respiratory effort and no respiratory distress Auscultation: clear to auscultation bilaterally Cardio: Rate: regular rate Rhythm: regular rhythm GI: Palpation (GI): Soft to palpation and nontender Skin: General skin exam: no rashes or lesions noted Neuro: General: patient oriented x3 Cranial nerves: Yes CN's II-XII intact bilaterally and Yes Bilaterally intact EOM present Extrem: General: Yes normal to inspection Objective Data Current Medications Generic Name Dose Route Start Last Admin Trade Name Freq PRN Reason Stop Dose Admin Acetaminophen 650 mg 05/14/20 13:50 Acetaminophen 325 Mg Tablet PO Q6H PRN Pain, Mild (Pain Scale 1-3) Amphetamine/Dextroamphetamine 40 mg 05/14/20 21:00 05/16/20 08:52 Amphetamine Mixed Salts 20 Mg Tablet PO 40 mg BID ROBERTO Administration Folic Acid 1 mg 05/15/20 09:00 05/16/20 08:51 Folic Acid 1 Mg Tablet PO 1 mg DAILY ROBERTO Administration Magnesium Hydroxide 30 ml 05/14/20 13:50 05/15/20 18:01 Milk Of Magnesia 30 Ml Oral.Susp PO 30 ml DAILY PRN Administration Constipation Medication 1 each 05/15/20 09:00 No Benzodiazepines MISCELLANE DAILY ROBERTO Morphine Sulfate 3 mg 05/14/20 00:54 05/16/20 06:10 Morphine Sulfate 4 Mg/Ml Cartridge IVPUSH 3 mg Q3H PRN Administration Pain, Severe (Pain Scale 7-10) Ondansetron HCl 4 mg 05/14/20 13:50 Ondansetron Hcl 4 Mg/2 Ml Vial IVPUSH Q8H PRN Nausea and Vomiting Pharmacy Consult 1 each 05/14/20 15:56 Consult Rx Etoh Phenob Dosing MISCELLANE ONCE PRN Consult order Protocol Phenobarbital 45 mg 05/15/20 09:00 05/16/20 08:51 Phenobarbital 15 Mg Tablet PO 05/16/20 21:01 45 mg BID ROBERTO Administration Phenobarbital 15 mg 05/17/20 09:00 Phenobarbital 15 Mg Tablet PO 05/18/20 21:01 BID ROBERTO Phenobarbital 15 mg 05/19/20 09:00 Phenobarbital 15 Mg Tablet PO 05/20/20 09:01 DAILY ROBERTO Sodium Chloride 3 ml 05/14/20 16:00 05/16/20 08:55 0.9 % Sodium Chloride Flush 3 Ml Syringe IVFLUSH 3 ml QSHIFT ROBERTO Administration Thiamine HCl 100 mg 05/15/20 09:00 05/16/20 08:51 Thiamine Hcl 100 Mg Tablet PO 100 mg DAILY ROBERTO Administration Zolpidem Tartrate 5 mg 05/14/20 13:50 Zolpidem Tartrate 5 Mg Tablet PO BEDTIME PRN Insomnia Labs CBC & Chem 7: 05/13/20 22:51 05/15/20 06:03 Microbiology Microbiology Results: Microbiology 05/13/20 22:51 Blood - Venous Blood Culture - Preliminary No growth after 48 hours. 05/13/20 22:51 Blood - Venous Blood Culture - Preliminary No growth after 48 hours. Assessment and Plan (1) Alcohol use: Status: Inactive (2) Hernia, inguinal, right: Status: Acute Assessment and Plan: 65-year-old male with history of depression who presented to the emergency department with abdominal pain found to have incarcerated hernia now status post repair s/p incarcerated hernia repair - management per surgical service alcohol use--no withdrawal mood patient no longer takes Xanax or Lamictal at home slight elevated in liver transaminases likely related to alcohol use -will trend medically ok to d/c and resume prior meds, ask to decrease alcohol intake a
--- NOTE | 2020-05-16 09:19 | P.DS_ITS ---
DS: Providers Provider Date of admission: 05/14/20 00:32 Primary care physician: None Physician Consults: 05/14/20 14:24 Consult to Hospitalist Routine Consulting Provider: Hospitalist Reason for consultation: incarcerated right inguinal hernia, h/o heavy ETOH use, withdrawal DS: Diagnosis Discharge Diagnosis (1) Alcohol use: Status: Inactive (2) Hernia, inguinal, right: Status: Acute DS: Summary Hospital Course Hospital Course: Alexei Kennedy is a 65-year-old male patient presenting to the emergency department with complaints of pain in the right groin. He has a known history of a right inguinal hernia which she is been able to reduce with light pressure until the day of admission when he was unable to reduce the hernia and noted increased pain associated with the hernia. He denied nausea, vomiting, diarrhea, or constipation. He subsequently presented to the emergency department where he was noted to have tenderness in the right inguinal region. A palpable hernia was identified. After administering intravenous pain medication the hernia was able to be reduced. A CT of the abdomen and pelvis confirmed a right inguinal hernia. The patient was subsequently admitted to the surgery service and arrangements made for repair of this right inguinal hernia. He was admitted on 05/13/2020 and underwent a repair of the right inguinal hernia with mesh on 05/14/2020. Operative findings were consistent with a previously incarcerated right inguinal hernia with some inflammatory changes around the hernia sac. He underwent repair with mesh which he tolerated very well. Postoperatively the patient remained comfortable following the surgery but was a bit shaky and concern was raised regarding his history of alcohol intake. Hospitalist consultation was requested for assistance in managing the possibility of alcohol withdrawal. He was started on a regular diet which she tolerated well without nausea or vomiting. On postoperative day 2, the patient is ambulating well, feels comfortable and is tolerating regular diet. He will be discharged to home. I have given him a prescription for pain medication. He should return approximately 1 week for wound examination. He was instructed to avoid lifting greater than 10 lb. He should also avoid driving for the next week. Time spent discussing smoking cessation with patient: 3 to 10 minutes Status at Discharge Functional status at discharge: independent ambulation Overall status at discharge: patient is back to baseline Time Spent with Patient Time attestation: Total time spent providing and/or coordinating discharge services: Discharge coordination time: Less than 30 minutes Quality: AMI Clinical Trial Participant: No Quality: VTE Documentation of Mechanical Device: Intermittent pneumatic compression sleeve Physical Exam Vital Signs: Vital Signs: Last Vital Signs Temp 97.5 F 05/16/20 07:02 Pulse 72 05/16/20 07:02 Resp 18 05/16/20 07:02 BP 129/73 05/16/20 07:02 Pulse Ox 97 05/16/20 07:02 Body Mass Index 27.2 Const: General: cooperative, comfortable, no acute distress, well developed, alert and awake Eyes: Sclerae: sclerae normal EOM: EOMs intact bilaterally Neck: Neck: Yes normal visual inspection Resp: Effort & Inspection: normal respiratory effort and no cough Auscultation: clear to auscultation bilaterally Cardio: Jugular venous distension: no JVD Rate: regular rate Rhythm: regular rhythm GI: Other: Right inguinal incision is clean, dry, and intact Inspection: Yes normal to inspection Palpation (GI): Soft to palpation, nontender, no guarding and not rigid Rectal Exam - Male: Yes deferred Skin: General skin exam: no rashes or lesions noted Extrem: General: No edema DS: Data Data Completed and Pending Pending studies at discharge: Pending at discharge 05/14/20 13:05 Surgical [PTH] Routine Labs on day of discharge: 05/13/20 22:34 IV insert/maintain .Now 05/13/20 22:41 Acetaminophen [Tylenol] 975 mg PO ONCE ONE Ketorolac Tromethamine [Toradol] 15 mg IVPUSH ONCE ONE 05/13/20 22:51 Complete Blood Count Auto Diff Stat Comprehensive Met. Panel Stat Lactic Acid Stat Prothrombin Time INR Stat 05/13/20 23:26 CT abdomen pelvis w con Stat 05/13/20 23:39 0.9 % Sodium Chloride [Ns] 1,000 ml IV 1,000 mls/hr 05/13/20 23:58 iohexoL 350 MG/ML [Omnipaque 350 MG/ML] 85 ml IV ONCE ONE 05/14/20 00:32 Ambulate QSHIFT WHILE AWAKE Compression Therapy QSHIFT Vital Signs QSHIFT oxyCODONE HCl Immed Release [Roxicodone] 5 mg PO Q6H PRN 05/14/20 00:44 Transfer Order Routine 05/14/20 00:45 Dextrose 5 % and 0.45 % NaCl [D51/2Ns] 1,000 ml IVCONT 100 mls/hr 05/14/20 00:46 UA CC w/rflx Micro + Cult Stat 05/14/20 01:21 SARS COV2 PCR INHOUSE Stat 05/14/20 01:44 ~Lactic Acid-LAB USE ONLY Stat 05/14/20 02:03 Incentive Spirometry NOW 05/14/20 02:24 clonazePAM [KlonoPIN] 1 mg PO TID PRN 05/14/20 09:00 lamoTRIgine [LaMICtal] 300 mg PO DAILY 05/14/20 09:18 Transfer Order Routine 05/14/20 11:03 ceFAZolin Sodium/Dextrose,Iso [Ancef] 2 gm in 50 ml .ROUTE As directed ceFAZolin Sodium/Dextrose,Iso [Ancef] 2 gm in 50 ml IV PREOP 05/14/20 11:03 Surgical prep, hair removal PREOP 05/14/20 11:52 dexAMETHasone sod phosphate [Decadron] 4 mg .ROUTE .STK-MED ONE fentaNYL citrate/PF [Sublimaze] 50 mcg .ROUTE .STK-MED ONE ondansetron HCL [Zofran] 4 mg .ROUTE .STK-MED ONE propofoL [Diprivan] 200 mg IVPUSH .STK-MED ONE 05/14/20 12:25 LORazepam [Ativan] 2 mg .ROUTE .STK-MED ONE 05/14/20 12:29 Bupivacaine MPF 0.75 % w/EPI [Sensorcaine MPF 0.75%/EPI 1:200,000] 30 ml .ROUTE .STK-MED ONE 05/14/20 12:54 Acetaminophen [Tylenol] 650 mg PO ONCE PRN ondansetron HCL [Zofran] 4 mg IVPUSH ONCE PRN oxyCODONE HCl Immed Release [Roxicodone] 5 mg PO ONCE PRN 05/14/20 13:50 Intake and Output Q4HR 05/14/20 13:53 Transfer Order Routine 05/14/20 16:08 Basic Metabolic Panel Stat Magnesium Stat 05/14/20 16:15 PHENobarbitaL sodium 175 mg IM ONCE ONE 05/14/20 20:00 PHENobarbitaL sodium 130 mg IM Q3H 05/15/20 06:03 Basic Metabolic Panel DAILY@0600 Liver Panel DAILY@0600 Laboratory Last Values WBC 7.6 X10*3/uL (4.8-10.8) 05/13/20 22:51 RBC 3.98 X10*6/uL (4.60-5.80) L 05/13/20 22:51 Hgb 11.8 g/dl (14.0-18.0) L 05/13/20 22:51 Hct 37.8 % (42-52) L 05/13/20 22:51 MCV 95.0 fL (80-98) 05/13/20 22:51 MCH 29.6 pg (27.0-33.0) 05/13/20 22:51 MCHC 31.2 g/dl (31.0-36.0) 05/13/20 22:51 RDW 16.0 % (11.0-16.0) 05/13/20 22:51 Plt Count 193 X10*3/uL (160-400) 05/13/20 22:51 MPV 9.9 fL (9.4-12.4) 05/13/20 22:51 Immature Gran % (Auto) 0.1 % (0.0-0.4) 05/13/20 22:51 Neut % (Auto) 59.4 % (45-73) 05/13/20 22:51 Lymph % (Auto) 28.8 % (20-40) 05/13/20 22:51 [place] % (Auto) 9.9 % (2-11) 05/13/20 22:51 Eos % (Auto) 1.4 % (0-4) 05/13/20 22:51 Baso % (Auto) 0.4 % (0-2) 05/13/20 22:51 Lymph # (Auto) 2.2 X10*3/uL (1.2-4.9) 05/13/20 22:51 [place] # (Auto) 0.8 X10*3/uL (0.1-1.2) 05/13/20 22:51 Eos # (Auto) 0.1 X10*3/uL (0.0-0.4) 05/13/20 22:51 Baso # (Auto) 0.0 X10*3/uL (0.0-0.2) 05/13/20 22:51 Abs Immat Gran (auto) 0.01 X10*3/uL (0.00-0.03) 05/13/20 22:51 Absolute Neuts (auto) 4.5 X10*3/uL (2.0-8.3) 05/13/20 22:51 Absolute Nucleated RBC 0.000 X10*3/uL (0.0-0.012) 05/13/20 22:51 Nucleated RBC % (auto) 0.0 /100WBC (0.0-0.2) 05/13/20 22:51 PT 11.4 SEC (10.8-13.0) 05/13/20 22:51 INR 1.0 (0.9-1.1) 05/13/20 22:51 Sodium 133 mmol/L (135-145) L 05/15/20 06:03 Potassium 4.2 mmol/l (3.3-5.1) 05/15/20 06:03 Chloride 101 mmol/L (96-108) 05/15/20 06:03 Carbon Dioxide 24 mmol/L (22-29) 05/15/20 06:03 Anion Gap 12 (12-20) 05/15/20 06:03 BUN 9 mg/dL (9-16) 05/15/20 06:03 Creatinine 0.62 mg/dL (0.5-1.4) 05/15/20 06:03 Estim Creat Clear Calc 122.6 05/15/20 06:03 Estimated GFR > 60 05/15/20 06:03 Random Glucose 158 mg/dL (60-115) H 05/15/20 06:03 Lactic Acid 2.9 mmol/L (0.5-2.0) H* 05/13/20 22:51 Lactic Acid Fup @ 2Hr 1.6 mmol/L (0.5-2.0) 05/14/20 01:44 Calcium 7.7 mg/dL (8.4-10.2) L 05/15/20 06:03 Magnesium 1.9 mg/dL (1.6-2.6) 05/14/20 16:08 Total Bilirubin 0.5 mg/dL (0.0-1.0) 05/15/20 06:03 Direct Bilirubin 0.3 mg/dL (0.0-0.5) 05/15/20 06:03 AST 34 U/L (5-37) 05/15/20 06:03 ALT 49 U/L (0-40) H 05/15/20 06:03 Alkaline Phosphatase 55 U/L (39-117) 05/15/20 06:03 Total Protein 6.1 g/dL (6.5-8.0) L 05/15/20 06:03 Albumin 3.7 g/dL (3.5-5.0) 05/15/20 06:03 Urine Color YELLOW 05/14/20 00:46 Urine Appearance CLEAR 05/14/20 00:46 Urine pH 6.0 (5.0-8.0) 05/14/20 00:46 Ur Specific [place] 1.010 (1.005-1.025) 05/14/20 00:46 Urine Protein NEG MG/DL (NEG-TRACE) 05/14/20 00:46 Urine Glucose (UA) NEG MG/DL (NEG) 05/14/20 00:46 Urine Ketones NEG MG/DL (NEG) 05/14/20 00:46 Urine Blood NEG (NEG) 05/14/20 00:46 Urine Nitrite NEG (NEG) 05/14/20 00:46 Ur Leukocyte Esterase NEG (NEG) 05/14/20 00:46 Coronavirus (PCR) NEGATIVE (Negative) 05/14/20 01:21 Preliminary micro results at discharge 05/13/20 22:51 Blood Culture - Preliminary Blood - Venous No growth after 48 hours. 05/13/20 22:51 Blood Culture - Preliminary Blood - Venous No growth after 48 hours. Discharge Plan Discharge Patient Disposition: Home, Self-Care Referrals: Aman Ya MD [Physician] - (follow up in one week [phone] option #1) Physician,None [Primary Care Provider] - Discharge Medications: New oxycodone 5 mg tablet 5 mg PO Q6H PRN (Reason: pain) Qty: 10 RF: 0 Continued dextroamphetamine-amphetamine 20 mg tablet 2 tab PO BID RF: 0 lamotrigine 150 mg tablet 2 tab PO DAILY RF: 0 clonazepam 2 mg tablet 1 tab PO TID PRN (Reason: Anxiety) RF: 0 Discharge Orders: Discharge Order (Routine); Ordered 05/16/20 Ordered By: Aman Ya Diet: advance to your usual diet Activity on Discharge: No heavy lifting Patient Instructions: Inguinal Hernia Repair (DC) Stand Alone Forms: Community Support Visit Report Forms: Patient Portal Discharge page Care Plan Goals: return to normal activity Health Concerns: incarcerated right inguinal hernia Plan of Treatment: repair of right inguinal hernia
--- NOTE | 2020-05-16 09:31 | PM.PNGS ---
Subjective Subjective Interval history: patient is awake and alert, feels much improved, denies significant inguinal pain. He tolerated a regular diet without nausea or vomiting. Physical Exam Vital Signs: Vital Signs: Last Vital Signs Temp 97.5 F 05/16/20 07:02 Pulse 72 05/16/20 07:02 Resp 18 05/16/20 07:02 BP 129/73 05/16/20 07:02 Pulse Ox 97 05/16/20 07:02 Body Mass Index 27.2 Const: General: cooperative, comfortable and no acute distress Resp: Effort & Inspection: normal respiratory effort Cardio: Jugular venous distension: no JVD GI: Other: Right inguinal incision is clean dry and intact Skin: Other: warm and dry, no rash Extrem: Other: no edema, normal capillary refill Progress Note: A&P Assessment and plan (1) Hernia, inguinal, right: Status: Acute Assessment and Plan: patient is recovering well following repair of the right inguinal hernia with mesh. He is alert and oriented, able to ambulate independently. He is tolerating a regular diet without nausea or vomiting. He will be discharged to home with follow-up to the office in 1 week. He should avoid lifting greater than 10 lb for the next month and avoid driving for the next week. Fall Risk Details Current Medications: Current Medications Generic Name Dose Route Start Last Admin Trade Name Freq PRN Reason Stop Dose Admin Acetaminophen 650 mg 05/14/20 13:50 Acetaminophen 325 Mg Tablet PO Q6H PRN Pain, Mild (Pain Scale 1-3) Amphetamine/Dextroamphetamine 40 mg 05/14/20 21:00 05/16/20 08:52 Amphetamine Mixed Salts 20 Mg Tablet PO 40 mg BID ROBERTO Administration Folic Acid 1 mg 05/15/20 09:00 05/16/20 08:51 Folic Acid 1 Mg Tablet PO 1 mg DAILY ROBERTO Administration Magnesium Hydroxide 30 ml 05/14/20 13:50 05/15/20 18:01 Milk Of Magnesia 30 Ml Oral.Susp PO 30 ml DAILY PRN Administration Constipation Medication 1 each 05/15/20 09:00 No Benzodiazepines MISCELLANE DAILY ROBERTO Morphine Sulfate 3 mg 05/14/20 00:54 05/16/20 06:10 Morphine Sulfate 4 Mg/Ml Cartridge IVPUSH 3 mg Q3H PRN Administration Pain, Severe (Pain Scale 7-10) Ondansetron HCl 4 mg 05/14/20 13:50 Ondansetron Hcl 4 Mg/2 Ml Vial IVPUSH Q8H PRN Nausea and Vomiting Pharmacy Consult 1 each 05/14/20 15:56 Consult Rx Etoh Phenob Dosing MISCELLANE ONCE PRN Consult order Protocol Phenobarbital 45 mg 05/15/20 09:00 05/16/20 08:51 Phenobarbital 15 Mg Tablet PO 05/16/20 21:01 45 mg BID ROBERTO Administration Phenobarbital 15 mg 05/17/20 09:00 Phenobarbital 15 Mg Tablet PO 05/18/20 21:01 BID ROBERTO Phenobarbital 15 mg 05/19/20 09:00 Phenobarbital 15 Mg Tablet PO 05/20/20 09:01 DAILY ROBERTO Sodium Chloride 3 ml 05/14/20 16:00 05/16/20 08:55 0.9 % Sodium Chloride Flush 3 Ml Syringe IVFLUSH 3 ml QSHIFT ROBERTO Administration Thiamine HCl 100 mg 05/15/20 09:00 05/16/20 08:51 Thiamine Hcl 100 Mg Tablet PO 100 mg DAILY ROBERTO Administration Zolpidem Tartrate 5 mg 05/14/20 13:50 Zolpidem Tartrate 5 Mg Tablet PO BEDTIME PRN Insomnia Time Spent With Patient Time: Total time spent is greater than 50% in coordination of care (as documented) at patient's floor/unit and/or counseling patient: Time with patient: 15 - 24 minutes Progress Note: Quality AMI Clinical Trial Participant: No
== END 2020-05-16 12:00 | disposition home or self-care (01) | DRG 352 ==
LOC: HO.ED 05-14 00:34 → HO.S3 05-14 01:24
PROVIDERS: Physician Assistant Medical; Admitting Provider Surgery; Emergency Provider Student in an Organized Health Care Education/Training Program; Visit Provider Surgery
PROC: 0YU50JZ Supplement Right Inguinal Region with Synthetic Substitute, Open Approach (ICD-10-PCS; principal; 2020-05-14 13:50)
DX: K40.31 Unilateral inguinal hernia, with obstruction, without gangrene, recurrent (principal); F32.9 Major depressive disorder, single episode, unspecified; Z20.828 Contact with and (suspected) exposure to other viral communicable diseases; Z88.2 Allergy status to sulfonamides; Z79.899 Other long term (current) drug therapy
CPT/HCPCS: 36415; 74177; 80048; 80053; 80076; 81003; 83605; 83735; 85025; 85610; 87040; 88302; 88304; 96361; 96374; 99024; 99284; 99285; C1781; J0690; J1100; J1885; J2060; J2270; J2405; J2560; J3010; Q9967; U0003

== ENCOUNTER 2020-05-19 22:19 | Emergency (ER) | payer MEDICARE, SELFPAY ==
[2020-05-19 23:12] VITALS: BP 136/81; PULSE 107; RESP 18; TEMP 36.8; O2SAT 97; BMI 26.6
[2020-05-19 23:19] VITALS: BP 136/81; PULSE 107; RESP 18; TEMP 36.8; O2SAT 97
--- NOTE | 2020-05-19 23:51 | ED.PSYCH ---
HPI - Psych General Chief Complaint: Psychiatric Symptoms Stated Complaint: VOLUNTARY PSYCH EVALUATION Time Seen by Provider: 05/19/20 23:38 Source: patient Mode of arrival: EMS Limitations: no limitations History of Present Illness HPI Narrative: patient comes to the emergency room after a family verbal altercation. 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 This afternoon the patient was trying to fix a window, the father became upset about the patient changing the window. The patient continue doing some home repair a shins, the next thing that he knows is that his father called the police and they asked the patient to come to the emergency room. There was no physical altercation involved, no alcohol and no drugs. patient came voluntarily. Patient denies suicidal or homicidal ideations Related Data Home Medications Medication Instructions Recorded Confirmed clonazepam 1 tab PO TID PRN 05/14/20 05/14/20 dextroamphetamine-amphetamine 2 tab PO BID 05/14/20 05/14/20 lamotrigine 2 tab PO DAILY 05/14/20 05/14/20 Previous Rx's Medication Instructions Recorded oxycodone 5 mg PO Q6H PRN #10 tab 05/16/20 Allergies Allergy/AdvReac Type Severity Reaction Status Date / Time flaxseed [FLAXSEED] Allergy Unknown SWELLING Verified 05/14/20 00:41 Sulfa (Sulfonamide Allergy Unknown UNKNOWN Verified 05/14/20 00:41 Antibiotics) [SULFA (SULFONAMIDE ANTIBIOTICS)] Review of Systems Review of Systems: Constitutional : No Weight loss, No Fever, No Chills, No Night Sweats, No Fatigue, No Malaise ENT/Mouth : No Hearing loss, No Ear Pain, No Nasal Congestion, No Sinus Pain, No Hoarseness, No sore throat, No Rhinorrhea, No Swallowing Difficulty Eyes: No Eye Pain, No Swelling, No Redness, No Foreign Body, No Discharge, No Vision Changes Cardiovascular : No Chest Pain, No SOB, No Dyspnea on Exertion, No Orthopnea, No Edema, No Palpitations Respiratory : No Cough, No Sputum, No Wheezing, No Smoke Exposure, No Dyspnea Gastrointestinal : No Nausea, No Vomiting, No Diarrhea, No Constipation, No abdominal Pain, No Hematochezia, No Melena Genitourinary : no irregular bleeding, No Dysuria, No Urinary Frequency, No Hematuria, No Urinary Incontinence, No Urgency, No Flank Pain, No Urinary Flow Changes, No Hesitancy Musculoskeletal : No joint pain, No Myalgias, No Joint Swelling Skin : No Skin Lesions, No rash Neuro : No Weakness, No Numbness, No Paresthesias, No Loss of Consciousness, No Dizziness, No Headache Psych : No Anxiety/Panic, No Depression, No SI/HI/AH/VH, No Social Issues, Heme/Lymph: No Bruising, No Bleeding,No Lymphadenopathy Endocrine : No Polyuria, No Polydipsia, No Temperature Intolerance [facility] Past Medical History Medical History Achilles rupture, left Alcohol use Appendicitis Depression Inguinal hernia Surgical History H/O right inguinal hernia repair History of right hip replacement Previous back surgery Family History Family History (Updated 05/14/20 @ 16:05 by SUZANNE Griffith) Other No history of heart disease Social History Social History (Updated 05/14/20 @ 16:06 by SUZANNE Griffith) Household Members: Family Housing: Apartment Alcohol intake: current Alcohol intake frequency: a few times a week Alcohol type: other Smoking Status: Never smoker Smoked in Last 30 Days: No Use of substances other than those prescribed or required for medical reasons: No Advance Directives: No service: No Current occupational status: retired Physical Exam Vital Signs: Vital Signs: Last Vital Signs Temp 98.3 F 05/19/20 23:19 Pulse 107 H 05/19/20 23:19 Resp 18 05/19/20 23:19 BP 136/81 05/19/20 23:19 Pulse Ox 97 05/19/20 23:19 Body Mass Index 26.6 Appearance: Alert. Oriented X3. No acute distress. Eyes: Pupils equal, round and reactive to light. ENT: Pharynx normal. Neck: Normal inspection. Neck supple. No lymph nodes noted. No crepitus CVS: Normal heart rate and rhythm. Pulses normal. Normal S1 and S2 Respiratory: No respiratory distress. Breath sounds normal. No Wheezing. No rales Abdomen: Soft and nontender. No rigidity. No distention. good BS x4 Skin: Skin warm and dry. Normal skin color. Normal skin turgor. Extremities: No lower extremity edema. No lower extremity edema. No Lacerations. No Rash Neuro: Oriented X 3. No motor deficit. No sensory deficit. Moving all extermities. No slurred speech. Course Course Course Narrative: at this time, physical violence is not suspected or elderly abuse. This was likely family misunderstanding. Patient is not suicidal or homicidal. Patient is being discharged home MDM - Psych Restraints Face to Face Assessment: Face to Face Assessment: Current Situation: After assessment of the patient, a review of the pertinent medical record and a discussion with nursing staff, I feel the patient requires a restrain intervention. Reaction To: [] Medical Condition: [] Behavioral State: [] Continued Need: [] Discharge Plan Discharge Clinical Impression: Normal physical exam Patient Disposition: Home, Self-Care Prescriptions: No Action dextroamphetamine-amphetamine 20 mg tablet 2 tab PO BID RF: 0 lamotrigine 150 mg tablet 2 tab PO DAILY RF: 0 clonazepam 2 mg tablet 1 tab PO TID PRN (Reason: Anxiety) RF: 0 oxycodone 5 mg tablet 5 mg PO Q6H PRN (Reason: pain) Qty: 10 RF: 0
--- NOTE | 2020-05-19 23:52 | PC.NURSE ---
patient to be discharge per md.
[2020-05-20 00:34] LABS: Amphetamine Screen Urine POSITIVE (Not Detect); Barbiturates, Urine POSITIVE (Not Detect); Benzodiazepines Screen Urine POSITIVE (Not Detect); Cannabinoid Screen Urine Not Detected (Not Detect); Cocaine Screen Urine Not Detected (Not Detect); Opiate Screen Urine POSITIVE (Not Detect); Phencyclidine Screen Urine Not Detected (Not Detect)
== END 2020-05-20 01:46 | disposition home or self-care (01) ==
PROVIDERS: Emergency Provider Emergency Medicine
DX: Z04.9 Encounter for examination and observation for unspecified reason (principal)
CPT/HCPCS: 80307; 99284

== ENCOUNTER 2021-11-05 11:35 | Inpatient (IN) | payer MEDICARE, SELFPAY ==
[2021-11-05] VITALS (12 sets, daily range): BP systolic 124–146; BP diastolic 56–70; PULSE 20–95; RESP 18–24; TEMP 36.4–37.1; O2SAT 96–99; BMI 30.7
--- NOTE | ~2021-11-05 | XR_ITS ---
EXAMINATION: XR CHEST CLINICAL INFORMATION: Bradycardia COMPARISON: Chest x-ray November 16, 2019 TECHNIQUE: Frontal view of the chest was obtained. FINDINGS: Cardiac silhouette is normal in size. The lungs are well aerated. There is no lobar consolidation. No pleural effusion or pneumothorax. Large hiatal hernia noted. XR/XR chest 1V IMPRESSION: No acute pulmonary pathology.
--- NOTE | 2021-11-05 11:53 | ECG_ITS ---
Test Reason : cp Blood Pressure : / mmHG Vent. Rate : 095 BPM Atrial Rate : 095 BPM P-R Int : 158 ms QRS Dur : 082 ms QT Int : 360 ms P-R-T Axes : 030 -40 024 degrees QTc Int : 452 ms Normal sinus rhythm Left axis deviation Minimal voltage criteria for LVH, may be normal variant ( R in aVL ) Abnormal ECG When compared with ECG of 16-NOV-2019 19:09, No significant changes seen Referred By: Generic ED Physician Electronically Signed By:GLADYS MONTGOMERY
[2021-11-05 12:02] LABS: MANUAL DIFF FLAG NO
[2021-11-05 12:19] LABS: Anion Gap 11 (12-20); Blood Urea Nitrogen 13 mg/dL (9-16); Carbon Dioxide 24 mmol/L (22-29); Chloride 106 mmol/L (96-108); Estimated Glomerular Filt Rate > 60; Glucose Random 100 mg/dL (60-115); Potassium 4.1 mmol/L (3.3-5.1); Sodium 137 mmol/L (135-145)
[2021-11-05 12:23] LABS: Basophils Percent Auto 0.6 % (0-2); Eosinophils Absolute Auto 0.2 X10*3/uL (0.0-0.4); Eosinophils Percent Auto 2.4 % (0-4); Imm Gran Abs Auto 0.01 X10*3/uL (0.00-0.03); Imm Gran Pct Auto 0.2 % (0.0-0.4); Lymphocytes Absolute Auto 1.3 X10*3/uL (1.2-4.9); Lymphocytes Percent Auto 20.7 % (20-40); Mean Corpuscular HGB Conc 23.8 g/dl (31.0-36.0); Mean Corpuscular Hemoglobin 16.1 pg (27.0-33.0); Mean Corpuscular Volume 67.5 fL (80.0-98.0); Monocytes Absolute Auto 0.9 X10*3/uL (0.1-1.2); Monocytes Percent Auto 14.5 % (2-11); NRBC Pct Auto 0.6 /100WBC (0.0-0.2); Neutrophils Absolute Auto 3.8 x10*3/uL (2.0-8.3); Neutrophils Percent Auto 61.6 % (45-73); Platelet Count 258 X10*3/uL (160-400); Red Blood Count 3.85 X10*6/uL (4.60-5.80); Red Cell Distribution Width 21.1 % (11.0-16.0); White Blood Count 6.2 X10*3/uL (4.8-10.8)
[2021-11-05 12:25] LABS: Troponin-I High Sensitivity 3.8 ng/L (<3.5-35.0)
[2021-11-05 12:30] LABS: Hemoglobin 6.2 g/dl (14.0-18.0)
--- NOTE | 2021-11-05 12:35 | ED.RECABL ---
HPI - Recheck/Abnormal Lab/Rx General Chief Complaint: Recheck/Abnormal Lab/Rx Stated Complaint: abnormal labs Time Seen by Provider: 11/05/21 11:52 Source: patient Mode of arrival: ambulatory Limitations: no limitations History of Present Illness HPI narrative: Patient is 66 years old with history of iron deficiency anemia used to take iron tablets about 3 years ago when told by specialist not to take anymore as he does not need it any more. For last 1 year patient has been having gradual increased weakness dizziness lightheadedness near-syncope got worse in last 3 weeks with exertional dyspnea. Patient seen his PCP yesterday hemoglobin was 5.9 patient denies any bleeding per rectum no black stool no abdominal pain not on any aspirin or any blood thinner. Patient had detail workup in the past for anemia including colonoscopy endoscopy no bleeding source was found Related Data Home Medications Medication Instructions Recorded Confirmed clonazepam 2 mg tablet 1 tab PO TID PRN 05/14/20 11/05/21 dextroamphetamine-amphetamine 20 1 tab PO BID 05/14/20 11/05/21 mg tablet dextroamphetamine-amphetamine 15 1 tab PO BID PRN 11/05/21 11/05/21 mg tablet (Adderall) simvastatin 10 mg tablet 1 tab PO BEDTIME 11/05/21 11/05/21 Allergies Allergy/AdvReac Type Severity Reaction Status Date / Time flaxseed [FLAXSEED] Allergy Unknown SWELLING Verified 05/14/20 00:41 Sulfa (Sulfonamide Allergy Unknown UNKNOWN Verified 05/14/20 00:41 Antibiotics) [SULFA (SULFONAMIDE ANTIBIOTICS)] Review of Systems Review of Systems: Yes all other systems are reviewed and are negative [facility] Past Medical History Medical History Achilles rupture, left ADHD Alcohol use Anemia Appendicitis Depression Hernia, inguinal, right Inguinal hernia Surgical History H/O right inguinal hernia repair History of right hip replacement Previous back surgery Family History Family History Other No history of heart disease Social History Social History Household Members: Family Housing: Apartment Alcohol intake: current Alcohol intake frequency: a few times a week Alcohol type: other Advance Directives: No Advance Directives Information Provided: No service: No Current occupational status: retired Physical Exam Vital Signs: Vital Signs: Last Vital Signs Temp 98.6 F 11/05/21 17:33 Pulse 76 11/05/21 17:33 Resp 24 H 11/05/21 17:33 BP 132/65 11/05/21 17:33 Pulse Ox 96 11/05/21 16:25 BMI result Body Mass Index 30.7 Appearance: Alert. Oriented X3. No acute distress. Eyes: Severe pallor ENT: Pharynx normal. Oral Mucosa moist Neck: Normal inspection. Neck supple. CVS: Normal heart rate and rhythm. Ejection systolic murmur 2/6 Pulses normal. Respiratory: No respiratory distress. Equal air entry bilateral, no wheezing/rales/rhonchi Abdomen: Soft and nontender. Bowel sounds are present, no mass palpable, no CVA tenderness rectal: Brown stool guaiac negative Skin: Skin warm and dry. Normal skin color. Normal skin turgor. Extremities: 1+ lower extremity edema. No calf tenderness Neuro: Oriented X 3. No motor deficit. No sensory deficit.No cerebellar signs , cranial nerves II-XII intact MDM - Recheck/Abnormal Lab/Rx MDM Narrative Medical decision making narrative: Patient with symptomatic severe anemia guaiac is negative will give him blood transfusion admit for further evaluation Lab Data Attestation: I reviewed the patient's lab results. Result diagrams: 11/05/21 11:58 11/05/21 11:58 Labs: Lab Results 11/05/21 11/05/21 11/05/21 Range/Units 11:57 11:58 11:58 WBC 6.2 (4.8-10.8) X10*3/uL RBC 3.85 L (4.60-5.80) X10*6/uL Hgb 6.2 L* (14.0-18.0) g/dl Hct 26.0 L (42.0-52.0) % MCV 67.5 L (80.0-98.0) fL MCH 16.1 L (27.0-33.0) pg MCHC 23.8 L (31.0-36.0) g/dl RDW 21.1 H (11.0-16.0) % Plt Count 258 (160-400) X10*3/uL MPV 10.0 (9.4-12.4) fL Immature Gran % (Auto) 0.2 (0.0-0.4) % Neut % (Auto) 61.6 (45-73) % Lymph % (Auto) 20.7 (20-40) % [place] % (Auto) 14.5 H (2-11) % Eos % (Auto) 2.4 (0-4) % Baso % (Auto) 0.6 (0-2) % Lymph # (Auto) 1.3 (1.2-4.9) X10*3/uL [place] # (Auto) 0.9 (0.1-1.2) X10*3/uL Eos # (Auto) 0.2 (0.0-0.4) X10*3/uL Baso # (Auto) 0.0 (0.0-0.2) X10*3/uL Abs Immat Gran (auto) 0.01 (0.00-0.03) X10*3/uL Absolute Neuts (auto) 3.8 (2.0-8.3) x10*3/uL Absolute Nucleated RBC 0.040 H (0.0-0.012) X10*3/uL Nucleated RBC % (auto) 0.6 H (0.0-0.2) /100WBC Sodium 137 (135-145) mmol/L Potassium 4.1 (3.3-5.1) mmol/L Chloride 106 (96-108) mmol/L Carbon Dioxide 24 (22-29) mmol/L Anion Gap 11 L (12-20) BUN 13 (9-16) mg/dL Creatinine 0.84 (0.5-1.4) mg/dL Estim Creat Clear Calc 101.0 Estimated GFR > 60 Random Glucose 100 D (60-115) mg/dL Calcium 9.0 D (8.4-10.2) mg/dL Iron 16 L (45-160) mcg/dL TIBC 519 H (228-428) mcg/dL % Saturation 3 L (15-50) % Unsat Iron Binding 503 ug/dL Troponin I High Sens (<3.5-35.0) ng/L B-Natriuretic Peptide (<100) pg/mL Stool Occult Blood (NEGATIVE) Blood Type A Positive Antibody Screen NEGATIVE Crossmatch See Detail 11/05/21 11/05/21 11/05/21 Range/Units 11:58 11:58 12:48 WBC (4.8-10.8) X10*3/uL RBC (4.60-5.80) X10*6/uL Hgb (14.0-18.0) g/dl Hct (42.0-52.0) % MCV (80.0-98.0) fL MCH (27.0-33.0) pg MCHC (31.0-36.0) g/dl RDW (11.0-16.0) % Plt Count (160-400) X10*3/uL MPV (9.4-12.4) fL Immature Gran % (Auto) (0.0-0.4) % Neut % (Auto) (45-73) % Lymph % (Auto) (20-40) % [place] % (Auto) (2-11) % Eos % (Auto) (0-4) % Baso % (Auto) (0-2) % Lymph # (Auto) (1.2-4.9) X10*3/uL [place] # (Auto) (0.1-1.2) X10*3/uL Eos # (Auto) (0.0-0.4) X10*3/uL Baso # (Auto) (0.0-0.2) X10*3/uL Abs Immat Gran (auto) (0.00-0.03) X10*3/uL Absolute Neuts (auto) (2.0-8.3) x10*3/uL Absolute Nucleated RBC (0.0-0.012) X10*3/uL Nucleated RBC % (auto) (0.0-0.2) /100WBC Sodium (135-145) mmol/L Potassium (3.3-5.1) mmol/L Chloride (96-108) mmol/L Carbon Dioxide (22-29) mmol/L Anion Gap (12-20) BUN (9-16) mg/dL Creatinine (0.5-1.4) mg/dL Estim Creat Clear Calc Estimated GFR Random Glucose (60-115) mg/dL Calcium (8.4-10.2) mg/dL Iron (45-160) mcg/dL TIBC (228-428) mcg/dL % Saturation (15-50) % Unsat Iron Binding ug/dL Troponin I High Sens 3.8 (<3.5-35.0) ng/L B-Natriuretic Peptide 79 (<100) pg/mL Stool Occult Blood NEGATIVE (NEGATIVE) Blood Type Antibody Screen Crossmatch ECG Data Attestation: I personally reviewed and interpreted this ECG as follows: Interpretation: Normal sinus rhythm heart rate 95 beats per minute LVH left axis deviation acute ST T wave changes no acute ischemia Discharge Plan Discharge Clinical Impression: Iron deficiency anemia Patient Disposition: Admitted As Inpatient
[2021-11-05 12:54] LABS: OBS Int Ctl Valid YES; OBS1 NEGATIVE (NEGATIVE)
[2021-11-05 13:14] LABS: Iron 16 mcg/dL (45-160)
[2021-11-05 13:22] LABS: B Type Natriuretic Peptide 79 pg/mL (<100)
[2021-11-05 13:26] LABS: Percent Iron Saturation 3 % (15-50); Total Iron Binding Capacity 519 mcg/dL (228-428); Unsaturated Iron Binding 503 ug/dL
[2021-11-05] MEDS: Ferrous Sulfate 324 MG TABLET.DR PO (14:48)
--- NOTE | 2021-11-05 17:10 | P.HPHOSP_ITS ---
History of Present Illness Date of Service: 11/05/21 Chief Complaint: weakness 66yo M with depression +ADHD, history of JULIO but off iron for past 3 years after his blood count improved. Went to new PCP SUZANNE Jason at [facility] 2d ago with complaint of worsening exertional dyspnea, fatigue, and lightheadedness. Labs were ordered and demonstrated Hb 5.9 with MCV 71. Here in ED, Hb was 6.2 and stool guaiac was negative. Two units of pRBCs were ordered. He denies fever, cough, chest pain, abd pain, nausea, vomiting, hematemesis, hematochezia, or melena. He states he had a colonoscopy and EGD a few years ago that was normal except for a hiatal hernia though I do not see records of this in the [facility] system. Review of Systems Review of Systems: Yes all other systems are reviewed and are negative [facility] Medical History Achilles rupture, left ADHD Alcohol use Anemia Appendicitis Depression Hernia, inguinal, right Inguinal hernia Family History Other No history of heart disease Surgical History H/O right inguinal hernia repair History of right hip replacement Previous back surgery Social History Household Members: Family Housing: Apartment Alcohol intake: current Alcohol intake frequency: a few times a week Alcohol type: other Advance Directives: No Advance Directives Information Provided: No service: No Current occupational status: retired Meds Allergies Allergy/AdvReac Type Severity Reaction Status Date / Time flaxseed [FLAXSEED] Allergy Unknown SWELLING Verified 05/14/20 00:41 Sulfa (Sulfonamide Allergy Unknown UNKNOWN Verified 05/14/20 00:41 Antibiotics) [SULFA (SULFONAMIDE ANTIBIOTICS)] Active Medications: Current Medications Pharmacy Consult (Consult Rx Perform Med Rec) 1 each MISCELLANE STAT STA Stop: 11/05/21 16:51 Home Medications Medication Instructions Recorded Confirmed Last Taken Type clonazepam 2 mg tablet 1 tab PO TID PRN 05/14/20 11/05/21 Unknown History dextroamphetamine-amphetamine 20 1 tab PO BID 05/14/20 11/05/21 05/14/20 History mg tablet dextroamphetamine-amphetamine 15 1 tab PO BID PRN 11/05/21 11/05/21 Unknown His tory mg tablet (Adderall) simvastatin 10 mg tablet 1 tab PO BEDTIME 11/05/21 11/05/21 Unknown History Physical Exam Vital Signs and Narrative: Vital Signs: Last Vital Signs Temp 98.2 F 11/05/21 16:26 Pulse 88 11/05/21 16:26 Resp 20 11/05/21 16:26 BP 138/68 11/05/21 16:26 Pulse Ox 96 11/05/21 16:25 BMI result Body Mass Index 30.7 Gen: in no acute distress HEENT: sclera anicteric, very pale but moist mucosa Neck: supple Lungs: clear to auscultation bilaterally Heart: regular rate and rhythm, no murmurs Abd: soft, non-tender, non-distended Ext: no edema Skin: warm/well-perfused Neuro: alert and oriented x3, no focal findings Psych: appropriate affect Results Labs CBC and Chem 7: 11/05/21 11:58 11/05/21 11:58 Labs: Laboratory Results - last 24 hr 11/05/21 11/05/21 11/05/21 11:57 11:58 11:58 MCV 67.5 L MCH 16.1 L MCHC 23.8 L RDW 21.1 H Plt Count 258 MPV 10.0 Immature Gran % (Auto) 0.2 Neut % (Auto) 61.6 Lymph % (Auto) 20.7 [place] % (Auto) 14.5 H Eos % (Auto) 2.4 Baso % (Auto) 0.6 Lymph # (Auto) 1.3 [place] # (Auto) 0.9 Eos # (Auto) 0.2 Baso # (Auto) 0.0 Abs Immat Gran (auto) 0.01 Absolute Neuts (auto) 3.8 Absolute Nucleated RBC 0.040 H Nucleated RBC % (auto) 0.6 H Anion Gap 11 L Estim Creat Clear Calc 101.0 Estimated GFR > 60 Random Glucose 100 D Calcium 9.0 D Iron 16 L TIBC 519 H % Saturation 3 L Unsat Iron Binding 503 Troponin I High Sens B-Natriuretic Peptide Stool Occult Blood Blood Type A Positive Antibody Screen NEGATIVE Crossmatch See Detail 04/29/22 04/29/22 04/29/22 11:58 11:58 12:48 MCV MCH MCHC RDW Plt Count MPV Immature Gran % (Auto) Neut % (Auto) Lymph % (Auto) [place] % (Auto) Eos % (Auto) Baso % (Auto) Lymph # (Auto) [place] # (Auto) Eos # (Auto) Baso # (Auto) Abs Immat Gran (auto) Absolute Neuts (auto) Absolute Nucleated RBC Nucleated RBC % (auto) Anion Gap Estim Creat Clear Calc Estimated GFR Random Glucose Calcium Iron TIBC % Saturation Unsat Iron Binding Troponin I High Sens 3.8 B-Natriuretic Peptide 79 Stool Occult Blood NEGATIVE Blood Type Antibody Screen Crossmatch Imaging Radiologist's Impressions: Impressions Chest X-Ray 11/05/21 12:17 IMPRESSION: No acute pulmonary pathology. Assessment and Plan (1) Iron deficiency anemia: Status: Acute Plan 66yo M with depression + ADHD, hx of JULIO in the past, presenting with progres sive fatigue, lightheadeness, and exertional dyspnea and found to have severe, symptomatic iron deficiency anemia # JULIO - admit to [facility], transfuse 2 units pRBCs, recheck CBC in am, guaiac all stools, check stool H pylori Ag, check celic serology, consult GI # mood disorder # ADHD - continue outpatient psychiatry medications # VTE ppx - SCDs, no heparin given severe anemia Quality Stroke Does the patient have a stroke diagnosis?: No VTE Prior VTE?: No VTE Risk Level:: Medical - moderate - high VTE Device Contraindication: N/A - Device Ordered VTE Drug Contraindication: Treatment Not Tolerated
--- NOTE | 2021-11-05 18:55 | PHA.MEDREC ---
Pharmacy Consult ? Medication Reconciliation Pharmacy has completed the medication reconciliation. Spoke with pt. he states he takes his 30 mg Adderall in the AM and around 4pm. He also takes his 15 mg Adderall 2 hours after those doses, so 10 am and 6pm. He also states he takes his clonazepam 2 at bedtime and 1 in the morning sometimes. Lastly, he said his simvastatin used to be 20 mg but somewhere along the way it changed to 10 mg. Per his claim history, his last 3 fills dating back to 03/2021 were all 10 mg.
[2021-11-05] MEDS: Atorvastatin Calcium 10 MG TABLET PO (19:32)
[2021-11-05] MEDS: 0.9 % Sodium Chloride Flush 3 ML SYRINGE IVFLUSH (19:33)
[2021-11-06] VITALS (10 sets, daily range): BP systolic 126–147; BP diastolic 60–74; PULSE 65–89; RESP 16–18; TEMP 36.1–37.3; O2SAT 95–98
[2021-11-06] MEDS: clonazePAM 1 MG TABLET 2 MG PO ×2 (03:01→21:45)
[2021-11-06 06:34] LABS: Hemoglobin 7.7 g/dl (14.0-18.0); Imm Gran Abs Auto 0.02 X10*3/uL (0.00-0.03); Imm Gran Pct Auto 0.3 % (0.0-0.4); NRBC Pct Auto 0.5 /100WBC (0.0-0.2); SCAN SMEAR FLAG 1
[2021-11-06 06:36] LABS: Basophils Percent Auto 0.7 % (0-2); Eosinophils Absolute Auto 0.2 X10*3/uL (0.0-0.4); Eosinophils Percent Auto 3.2 % (0-4); Hematocrit 28.8 % (42.0-52.0); Lymphocytes Absolute Auto 1.3 X10*3/uL (1.2-4.9); Lymphocytes Percent Auto 22.3 % (20-40); Mean Corpuscular HGB Conc 26.7 g/dl (31.0-36.0); Mean Corpuscular Hemoglobin 18.9 pg (27.0-33.0); Mean Corpuscular Volume 70.6 fL (80.0-98.0); Mean Platelet Volume 10.2 fL (9.4-12.4); Neutrophils Absolute Auto 3.5 x10*3/uL (2.0-8.3); Neutrophils Percent Auto 57.5 % (45-73); Platelet Count 232 X10*3/uL (160-400); Red Blood Count 4.08 X10*6/uL (4.60-5.80); Red Cell Distribution Width 23.5 % (11.0-16.0)
[2021-11-06 06:43] LABS: PLT ABN DIST 1
[2021-11-06 06:44] LABS: MANUAL DIFF FLAG NO
[2021-11-06 06:55] LABS: Anion Gap 12 (12-20); Blood Urea Nitrogen 13 mg/dL (9-16); Calcium 8.7 mg/dL (8.4-10.2); Carbon Dioxide 25 mmol/L (22-29); Chloride 106 mmol/L (96-108); Creatinine Clr Calc Pharmacy 114.8; Estimated Glomerular Filt Rate > 60; Glucose Random 137 mg/dL (60-115); Potassium 4.6 mmol/L (3.3-5.1); Sodium 138 mmol/L (135-145)
--- NOTE | 2021-11-06 09:30 | MHC.CM.PN ---
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 CURRENT DC PLAN, HOME WITH NO SERVICES PT WILL DRIVE HIMSELF * PT INTERESTED IN LOOKING INTO MEDICAID. REFERRAL SENT TO [facility] [place] [place] [facility]
--- NOTE | 2021-11-06 10:33 | P.PNIM_ITS ---
Subjective Subjective Date of Service: 11/06/21 Interval History: Tolerated transfusion. Still quite weak + dyspneic. Review of Systems Review of Systems: Yes all other systems are reviewed and are negative Physical Exam Vital Signs: Vital Signs: Last Vital Signs Temp 99.2 F 11/06/21 07:44 Pulse 82 11/06/21 07:44 Resp 17 11/06/21 07:44 BP 126/71 11/06/21 07:44 Pulse Ox 97 11/06/21 07:44 BMI result Body Mass Index 30.7 Gen: in no acute distress HEENT: sclera anicteric, very pale but moist mucosa Neck: supple Lungs: clear to auscultation bilaterally Heart: regular rate and rhythm, no murmurs Abd: soft, non-tender, non-distended Ext: no edema Skin: warm/well-perfused Neuro: alert and oriented x3, no focal findings Psych: appropriate affect Objective Data Active Medications Acetaminophen (Acetaminophen 325 Mg Tablet) 650 mg PO Q6H PRN PRN Reason: Pain, Mild (Pain Scale 1-3) Amphetamine/Dextroamphetamine (Amphetamine Mixed Salts 10 Mg Tablet) 30 mg PO BID@0800,1600 [facility] Atorvastatin Calcium (Atorvastatin Calcium 10 Mg Tablet) 10 mg PO BEDTIME [facility] Last Admin: 11/05/21 19:32 Dose: 10 mg Documented by: ANTONIO Clonazepam (Clonazepam 1 Mg Tablet) 2 mg PO TID PRN PRN Reason: Anxiety Last Admin: 11/06/21 03:01 Dose: 2 mg Documented by: LISANDRA Multivitamins/Vitamin C (Multivitamin Tablet) 1 tab PO DAILY [facility] Omeprazole (Omeprazole 20 Mg Capsule.) 20 mg PO DAILY [facility] Ondansetron HCl (Ondansetron Hcl 4 Mg/2 Ml Vial) 4 mg IVPUSH Q8H PRN PRN Reason: Nausea and Vomiting Sodium Chloride (0.9 % Sodium Chloride Flush 3 Ml Syringe) 3 ml IVFLUSH QSHIFT [facility] Last Admin: 11/05/21 19:33 Dose: 3 ml Documented by: ANTONIO Labs CBC & Chem 7: 11/06/21 06:01 11/06/21 06:01 Labs: Laboratory Results - last 24 hr 11/05/21 11/05/21 11/05/21 11:57 11:58 11:58 MCV 67.5 L MCH 16.1 L MCHC 23.8 L RDW 21.1 H Plt Count 258 MPV 10.0 Immature Gran % (Auto) 0.2 Neut % (Auto) 61.6 Lymph % (Auto) 20.7 [place] % (Auto) 14.5 H Eos % (Auto) 2.4 Baso % (Auto) 0.6 Lymph # (Auto) 1.3 [place] # (Auto) 0.9 Eos # (Auto) 0.2 Baso # (Auto) 0.0 Abs Immat Gran (auto) 0.01 Absolute Neuts (auto) 3.8 Absolute Nucleated RBC 0.040 H Nucleated RBC % (auto) 0.6 H Anion Gap 11 L Estim Creat Clear Calc 101.0 Estimated GFR > 60 Random Glucose 100 D Calcium 9.0 D Iron 16 L TIBC 519 H % Saturation 3 L Unsat Iron Binding 503 Troponin I High Sens B-Natriuretic Peptide Stool Occult Blood Blood Type A Positive Antibody Screen NEGATIVE Crossmatch See Detail 11/05/21 11/05/21 11/05/21 11:58 11:58 12:48 MCV MCH MCHC RDW Plt Count MPV Immature Gran % (Auto) Neut % (Auto) Lymph % (Auto) [place] % (Auto) Eos % (Auto) Baso % (Auto) Lymph # (Auto) [place] # (Auto) Eos # (Auto) Baso # (Auto) Abs Immat Gran (auto) Absolute Neuts (auto) Absolute Nucleated RBC Nucleated RBC % (auto) Anion Gap Estim Creat Clear Calc Estimated GFR Random Glucose Calcium Iron TIBC % Saturation Unsat Iron Binding Troponin I High Sens 3.8 B-Natriuretic Peptide 79 Stool Occult Blood NEGATIVE Blood Type Antibody Screen Crossmatch 11/06/21 11/06/21 06:01 06:01 MCV 70.6 L MCH 18.9 L MCHC 26.7 L RDW 23.5 H Plt Count 232 MPV 10.2 Immature Gran % (Auto) 0.3 Neut % (Auto) 57.5 Lymph % (Auto) 22.3 [place] % (Auto) 16.0 H Eos % (Auto) 3.2 Baso % (Auto) 0.7 Lymph # (Auto) 1.3 [place] # (Auto) 1.0 Eos # (Auto) 0.2 Baso # (Auto) 0.0 Abs Immat Gran (auto) 0.02 Absolute Neuts (auto) 3.5 Absolute Nucleated RBC 0.030 H Nucleated RBC % (auto) 0.5 H Anion Gap 12 Estim Creat Clear Calc 114.8 Estimated GFR > 60 Random Glucose 137 H D Calcium 8.7 Iron TIBC % Saturation Unsat Iron Binding Troponin I High Sens B-Natriuretic Peptide Stool Occult Blood Blood Type Antibody Screen Crossmatch Assessment and Plan (1) Iron deficiency anemia: Status: Acute [facility] hospital d#2 66yo M with depression + ADHD, hx of JULIO in the past, presenting with progressive fatigue, lightheadeness, and exertional dyspnea and found to have severe, symptomatic iron deficiency anemia # JULIO - transfuse 1 additional unit pRBCs, recheck CBC in am, guaiac all stools, pending: stool H pylori Ag, celiac serology, GI consult # mood disorder # ADHD - continue outpatient psychiatric medications # VTE ppx - SCDs, no heparin given severe anemia Quality Stroke Does the patient have a stroke diagnosis?: No VTE Prior VTE?: No VTE Risk Level:: Medical - moderate - high VTE Device Contraindication: N/A - Device Ordered VTE Drug Contraindication: Treatment Not Tolerated
[2021-11-06] MEDS: Amphetamine Mixed Salts 10 MG TABLET 30 MG PO ×2 (10:43→18:05)
[2021-11-06] MEDS: Omeprazole 20 MG CAPSULE.DR PO (10:43)
[2021-11-06] MEDS: Multivitamin TABLET 1 TAB PO (10:43)
[2021-11-06] MEDS: 0.9 % Sodium Chloride Flush 3 ML SYRINGE IVFLUSH ×3 (10:44→21:45)
--- NOTE | 2021-11-06 13:14 | PM.EVENT ---
Event Note Date of Service: 11/06/21 Event Note: GI consult dictated iron def anemia with heme neg stools I have recommended that he f/u with Dr Marroquin as outpt for consideration of elective egd/colon as he is established with him.
[2021-11-06] MEDS: Atorvastatin Calcium 10 MG TABLET PO (21:45)
--- NOTE | 2021-11-06 23:25 | CONS_ITS ---
DATE OF SERVICE: 11/06/2021 REFERRING PHYSICIAN: Sebastian Hood MD REASON FOR CONSULTATION: Iron deficiency anemia. HISTORY OF PRESENT ILLNESS: The patient is a pleasant 66-year-old man, who was admitted to the hospital after being advised to come to the emergency department from his primary care provider. Blood work showed a significant anemia and he was found to have iron deficiency. The patient denies any rectal bleeding or change in his bowel habits. He states stools have been normal and occult blood testing was negative in the emergency department. The patient describes undergoing upper endoscopy and colonoscopy [address] Marroquin, which he states showed diverticulosis, hiatal hernia, and Zamora esophagus. Endoscopy records from 12 years ago show similar findings here as well as a colon polyp. On admission, he was noted to have a hematocrit of 26 with an MCV of 67.5. Chemistry showed an iron saturation of 3%. The patient does describe iron deficiency in the past, treated with iron supplementation, which was apparently stopped after his blood count normalized. He does take omeprazole on a regular basis for chronic reflux symptoms. Denies any abdominal pain or change in his bowel habits. PAST MEDICAL HISTORY: 1. Iron deficiency anemia as above. 2. Zamora esophagus/hiatal hernia. 3. Inguinal hernia repair, right. 4. Depression. 5. Achilles tendon rupture. CURRENT MEDICATIONS: Current medication list is reviewed in the chart. ALLERGIES: MULTIPLE MEDICATION ALLERGIES ARE REVIEWED. FAMILY HISTORY: This is reviewed with the patient and is negative for GI malignancy. SOCIAL HISTORY: He denies tobacco use. He states he drinks a fair amount. REVIEW OF SYSTEMS: SKIN: No pruritus. HEENT: Negative. CARDIOPULMONARY: No shortness of breath or chest pain. GASTROINTESTINAL: As above. GENITOURINARY: Negative. NEUROPSYCHIATRIC: Negative. PHYSICAL EXAMINATION: GENERAL: Reveals a pleasant male, in no acute distress. VITAL SIGNS: Reviewed in electronic medical record and are stable. SKIN: Anicteric. HEENT: No scleral icterus. NECK: Without lymphadenopathy or thyromegaly. LUNGS: Clear. HEART: Regular rate and rhythm. S1, S2. No murmur. ABDOMEN: Soft without focal masses or tenderness. Bowel sounds are present. No organomegaly is noted. EXTREMITIES: Without edema. LABORATORY DATA: Hematocrit of 28.8, following transfusion. He is currently receiving his 3rd unit of packed red blood cells. There has been no reported bleeding. IMPRESSION: Iron-deficiency anemia. At this time, he appears stable with no evidence of ongoing GI bleeding. I did recommend he follow up with his shovel oiler for repeat evaluation including consideration of upper endoscopy and colonoscopy. This can be arranged as an outpatient. Thanks for asking me to see him. I will follow him in the hospital as needed. MD KLEVER Zuniga/ITZEL / [phone]
[2021-11-07 03:15] VITALS: BP 125/79; PULSE 77; RESP 18; TEMP 36.5; O2SAT 97
[2021-11-07 07:31] VITALS: BP 122/75; PULSE 80; RESP 17; TEMP 36.4; O2SAT 98
[2021-11-07 08:14] LABS: Mean Corpuscular Hemoglobin 19.7 pg (27.0-33.0); NRBC Pct Auto 0.3 /100WBC (0.0-0.2)
[2021-11-07 08:16] LABS: Hematocrit 34.1 % (42.0-52.0); Hemoglobin 9.1 g/dl (14.0-18.0); Mean Corpuscular HGB Conc 26.7 g/dl (31.0-36.0); Mean Corpuscular Volume 73.8 fL (80.0-98.0); Mean Platelet Volume 10.2 fL (9.4-12.4); Platelet Count 230 X10*3/uL (160-400); Red Blood Count 4.62 X10*6/uL (4.60-5.80); Red Cell Distribution Width 24.2 % (11.0-16.0); White Blood Count 7.6 X10*3/uL (4.8-10.8)
[2021-11-07 08:17] LABS: PLT ABN DIST 1
[2021-11-07] MEDS: Multivitamin TABLET 1 TAB PO (11:01)
[2021-11-07] MEDS: Omeprazole 20 MG CAPSULE.DR PO (11:01)
[2021-11-07] MEDS: Amphetamine Mixed Salts 10 MG TABLET 30 MG PO ×2 (11:01→17:47)
[2021-11-07] MEDS: 0.9 % Sodium Chloride Flush 3 ML SYRINGE IVFLUSH ×3 (11:02→21:27)
[2021-11-07 11:10] VITALS: BP 139/76; PULSE 81; RESP 19; TEMP 36.4; O2SAT 97
--- NOTE | 2021-11-07 11:51 | PM.DS ---
DS: Providers Provider Date of Service: 11/08/21 Date of admission: 11/05/21 17:09 Date of discharge: 11/08/21 Primary care physician: SUZANNE Jeter Consults: 11/05/21 17:22 Consult to Gastroenterology Routine Consulting Provider[place] [facility] Reason for consultation: severe JULIO... fobt negative but no other source DS: Diagnosis Discharge Diagnosis (1) Iron deficiency anemia: Status: Acute DS: Summary Hospital Course Hospital Course: from my admission H+P, 11/05/21: 66yo M with depression +ADHD, history of JULIO but off iron for past 3 years after his blood count improved.? Went to new PCP SUZANNE Jason at [facility] 2d ago with complaint of worsening exertional dyspnea, fatigue, and lightheadedness.? Labs were ordered and demonstrated Hb 5.9 with MCV 71.? Here in ED, Hb was 6.2 and stool guaiac was negative.? Two units of pRBCs were ordered.? He denies fever, cough, chest pain, abd pain, nausea, vomiting, hematemesis, hematochezia, or melena.? He states he had a colonoscopy and EGD a few years ago that was normal except for a hiatal hernia though I do not see records of this in the [facility] system. per GI consultation by Dr Jhaveri: The patient describes undergoing upper endoscopy and colonoscopy [address] Marroquin, which he states showed diverticulosis, hiatal hernia, and Zamora esophagus.? Endoscopy records from 12 years ago show similar findings here as well as a colon polyp. He was admitted to the [facility] and transfused 3 units packed red blood cells with appropriate rise in H+H and improvement in symptoms. He had no evidence of active GI bleed. He was discharged home on oral iron with instructions to follow up with his primary care provider in 1 week and his senior account clerk in 2-4 weeks for outpatient endoscopic evaluation. He should repeat CBCd in 1 month. Outpatient PT is recommended. Time Spent with Patient Time attestation: Total time spent providing and/or coordinating discharge services: Discharge coordination time: Greater than 30 minutes Quality: Safe Use of Opioids Does Pt have an Active Cancer Diagnosis on the Problem List?: No Quality: Stroke Does the patient have a stroke diagnosis?: No Physical Exam Vital Signs: Vital Signs: Temperature 97.7 F 11/08/21 08:00 Pulse Rate 85 11/08/21 08:00 Respiratory Rate 20 11/08/21 08:00 Blood Pressure 137/73 11/08/21 08:00 Pulse Oximetry 100 11/08/21 08:00 Gen: in no acute distress HEENT: sclera anicteric, moist and pale mucus membranes Neck: supple Lungs: clear to auscultation bilaterally Heart: regular rate and rhythm, no murmurs Abd: soft, non-tender, non-distended Ext: no edema Skin: warm/well-perfused Neuro: alert and oriented x3, no focal findings Psych: appropriate affect DS: Data Data Completed and Pending Completed studies during hospitalization [Text1]: Laboratory Results WBC 7.6 X10*3/uL (4.8-10.8) 11/07/21 07:54 RBC 4.62 X10*6/uL (4.60-5.80) 11/07/21 07:54 Hgb 9.1 g/dl (14.0-18.0) L 11/07/21 07:54 Hct 34.1 % (42.0-52.0) L 11/07/21 07:54 MCV 73.8 fL (80.0-98.0) L 11/07/21 07:54 MCH 19.7 pg (27.0-33.0) L 11/07/21 07:54 MCHC 26.7 g/dl (31.0-36.0) L 11/07/21 07:54 RDW 24.2 % (11.0-16.0) H 11/07/21 07:54 Plt Count 230 X10*3/uL (160-400) 11/07/21 07:54 MPV 10.2 fL (9.4-12.4) 11/07/21 07:54 Immature Gran % (Auto) 0.3 % (0.0-0.4) 11/06/21 06:01 Neut % (Auto) 57.5 % (45-73) 11/06/21 06:01 Lymph % (Auto) 22.3 % (20-40) 11/06/21 06:01 [place] % (Auto) 16.0 % (2-11) H 11/06/21 06:01 Eos % (Auto) 3.2 % (0-4) 11/06/21 06:01 Baso % (Auto) 0.7 % (0-2) 11/06/21 06:01 Lymph # (Auto) 1.3 X10*3/uL (1.2-4.9) 11/06/21 06:01 [place] # (Auto) 1.0 X10*3/uL (0.1-1.2) 11/06/21 06:01 Eos # (Auto) 0.2 X10*3/uL (0.0-0.4) 11/06/21 06:01 Baso # (Auto) 0.0 X10*3/uL (0.0-0.2) 11/06/21 06:01 Abs Immat Gran (auto) 0.02 X10*3/uL (0.00-0.03) 11/06/21 06:01 Absolute Neuts (auto) 3.5 x10*3/uL (2.0-8.3) 11/06/21 06:01 Absolute Nucleated RBC 0.020 X10*3/uL (0.0-0.012) H 11/07/21 07:54 Nucleated RBC % (auto) 0.3 /100WBC (0.0-0.2) H 11/07/21 07:54 Sodium 138 mmol/L (135-145) 11/06/21 06:01 Potassium 4.6 mmol/L (3.3-5.1) 11/06/21 06:01 Chloride 106 mmol/L (96-108) 11/06/21 06:01 Carbon Dioxide 25 mmol/L (22-29) 11/06/21 06:01 Anion Gap 12 (12-20) 11/06/21 06:01 BUN 13 mg/dL (9-16) 11/06/21 06:01 Creatinine 0.74 mg/dL (0.5-1.4) 11/06/21 06:01 Estim Creat Clear Calc 114.8 11/06/21 06:01 Estimated GFR > 60 11/06/21 06:01 Random Glucose 137 mg/dL (60-115) H D 11/06/21 06:01 Calcium 8.7 mg/dL (8.4-10.2) 11/06/21 06:01 Iron 16 mcg/dL (45-160) L 11/05/21 11:58 TIBC 519 mcg/dL (228-428) H 11/05/21 11:58 % Saturation 3 % (15-50) L 11/05/21 11:58 Unsat Iron Binding 503 ug/dL 11/05/21 11:58 Troponin I High Sens 3.8 ng/L (<3.5-35.0) 11/05/21 11:58 B-Natriuretic Peptide 79 pg/mL (<100) 11/05/21 11:58 Stool Occult Blood NEGATIVE (NEGATIVE) 11/05/21 12:48 Stool H. pylori Ag Cancelled 11/05/21 11:58 Blood Type A Positive 11/05/21 11:57 Antibody Screen NEGATIVE 11/05/21 11:57 Crossmatch See Detail 11/05/21 11:57 Impressions Chest X-Ray 11/05/21 12:17 IMPRESSION: No acute pulmonary pathology. Discharge Plan Discharge Patient Disposition: Home, Self-Care Discharge Diagnosis: severe iron deficiency anemia Referrals: [place] [facility] [place] - 1 Week Osman Marroquin MD [Physician] - 2 Weeks Jeimy Jason PA [Primary Care Provider] - 1 Week Discharge Medications: New ferrous sulfate 325 mg (65 mg iron) tablet 325 mg PO BID Qty: 60 0RF ascorbic acid (vitamin C) [Vitamin C] 250 mg tablet 250 mg PO BID Qty: 60 0RF Continued clonazepam 2 mg tablet 1 tab PO TID PRN (Reason: Anxiety) 0RF simvastatin 10 mg tablet 1 tab PO BEDTIME 0RF dextroamphetamine-amphetamine [Adderall] 15 mg tablet 1 tab PO BID@10,18 0RF omeprazole 20 mg Capsule,Delayed Release(Dr/Ec) 20 mg PO DAILY 0RF multivitamin Tablet 1 tab PO DAILY 0RF dextroamphetamine-amphetamine [Adderall] 30 mg tablet 1 tab PO BID@08,16 0RF Discharge Orders: Discharge Order (Routine); Ordered 11/08/21 Ordered By: Sebastian Hood Diet: advance to usual diet and other Activity on Discharge: As tolerated Stand Alone Forms: Patient Portal Discharge page Other Ambulatory Orders: Complete Blood Count no Diff (Routine) Timeframe: 1 Month Facility: [facility] - Location: Laboratory Ordered By: Sebastian Hood Care Plan Goals: improved blood counts Health Concerns: severe iron deficiency anemia Plan of Treatment: take ferrous sulfate [iron] 325 mg twice daily with ascorbic acid [vitamin C] 250 mg twice daily to boost absorption; eat iron-rich foods recheck CBCd in 1 month follow up with primary care doctor in 1 week, senior account clerk in 2 weeks outpatient PT [place] [facility] Assessment: See Discharge Summary Patient Instructions: Iron Deficiency Anemia (DC)
--- NOTE | 2021-11-07 12:26 | P.PNIM_ITS ---
Subjective Subjective Date of Service: 11/07/21 Interval History: Tolerated transfusion Dizzy with ambulation requiring 2-assist Review of Systems Review of Systems: Yes all other systems are reviewed and are negative Physical Exam Vital Signs: Vital Signs: Last Vital Signs Temp 97.5 F 11/07/21 11:10 Pulse 81 11/07/21 11:10 Resp 19 11/07/21 11:10 BP 139/76 11/07/21 11:10 Pulse Ox 97 11/07/21 11:10 BMI result Body Mass Index 30.7 Gen: in no acute distress HEENT: sclera anicteric, moist but pale mucus membranes Neck: supple Lungs: clear to auscultation bilaterally Heart: regular rate and rhythm, no murmurs Abd: soft, non-tender, non-distended Ext: no edema Skin: warm/well-perfused Neuro: alert and oriented x3, no focal findings Psych: appropriate affect Objective Data Active Medications Acetaminophen (Acetaminophen 325 Mg Tablet) 650 mg PO Q6H PRN PRN Reason: Pain, Mild (Pain Scale 1-3) Amphetamine/Dextroamphetamine (Amphetamine Mixed Salts 10 Mg Tablet) 30 mg PO BID@0800,1600 [facility] Last Admin: 11/07/21 11:01 Dose: 30 mg Documented by: RIN Atorvastatin Calcium (Atorvastatin Calcium 10 Mg Tablet) 10 mg PO BEDTIME [facility] Last Admin: 11/06/21 21:45 Dose: 10 mg Documented by: LISANDRA Clonazepam (Clonazepam 1 Mg Tablet) 2 mg PO TID PRN PRN Reason: Anxiety Last Admin: 11/06/21 21:45 Dose: 2 mg Documented by: LISANDRA Multivitamins/Vitamin C (Multivitamin Tablet) 1 tab PO DAILY [facility] Last Admin: 11/07/21 11:01 Dose: 1 tab Documented by: RIN Omeprazole (Omeprazole 20 Mg Capsule.) 20 mg PO DAILY [facility] Last Admin: 11/07/21 11:01 Dose: 20 mg Documented by: RIN Ondansetron HCl (Ondansetron Hcl 4 Mg/2 Ml Vial) 4 mg IVPUSH Q8H PRN PRN Reason: Nausea and Vomiting Sodium Chloride (0.9 % Sodium Chloride Flush 3 Ml Syringe) 3 ml IVFLUSH QSHIFT [facility] Last Admin: 11/07/21 11:02 Dose: 3 ml Documented by: RIN Labs CBC & Chem 7: 11/07/21 07:54 11/06/21 06:01 Labs: Laboratory Results - last 24 hr 11/05/21 11/05/21 11/07/21 11:57 11:58 07:54 MCV 73.8 L MCH 19.7 L MCHC 26.7 L RDW 24.2 H Plt Count 230 MPV 10.2 Absolute Nucleated RBC 0.020 H Nucleated RBC % (auto) 0.3 H Stool H. pylori Ag Cancelled Crossmatch See Detail Assessment and Plan (1) Iron deficiency anemia: Status: Acute [facility] d#3 66yo M with depression + ADHD, hx of JULIO in the past, presenting with progressive fatigue, lightheadeness, and exertional dyspnea and found to have severe, symptomatic iron deficiency anemia # JULIO - Hb improved appropriately p 3u pRBCs - FOBT-, GI consulted, recommend outpt evaluation with his usual GI, Dr Marroquin - pending: stool H pylori Ag, celiac serology, GI consult # mood disorder # ADHD - continue outpatient psychiatric medications # VTE ppx - SCDs, no heparin given severe anemia # dispo - PT eval given dizziness/lightheadeness, may require STr Quality Stroke Does the patient have a stroke diagnosis?: No VTE Prior VTE?: No VTE Risk Level:: Medical - moderate - high VTE Device Contraindication: N/A - Device Ordered VTE Drug Contraindication: Treatment Not Tolerated
[2021-11-07 15:05] VITALS: BP 145/67; PULSE 87; RESP 18; TEMP 37; O2SAT 95
[2021-11-07 19:03] VITALS: BP 145/72; PULSE 75; RESP 17; TEMP 36.3; O2SAT 97
[2021-11-07] MEDS: clonazePAM 1 MG TABLET 2 MG PO (21:27)
[2021-11-07] MEDS: Atorvastatin Calcium 10 MG TABLET PO (21:27)
[2021-11-07 23:24] VITALS: BP 117/63; PULSE 80; RESP 20; TEMP 36.6; O2SAT 95
[2021-11-08 03:15] VITALS: BP 112/62; PULSE 84; RESP 16; TEMP 37.3; O2SAT 95
[2021-11-08 08:00] VITALS: BP 137/73; PULSE 85; RESP 20; TEMP 36.5; O2SAT 100
[2021-11-08] MEDS: Omeprazole 20 MG CAPSULE.DR PO (09:30)
[2021-11-08] MEDS: Multivitamin TABLET 1 TAB PO (09:30)
[2021-11-08] MEDS: 0.9 % Sodium Chloride Flush 3 ML SYRINGE IVFLUSH (09:30)
[2021-11-08] MEDS: Amphetamine Mixed Salts 10 MG TABLET 30 MG PO (09:31)
--- NOTE | 2021-11-08 11:18 | MHC.CM.PN ---
HOME NO SKILLED SERVCEIS ORDERED BY
[2021-11-08 11:50] VITALS: BP 122/74; PULSE 91; RESP 20; TEMP 36.6; O2SAT 98
[2021-11-08 14:36] LABS: Immunoglobulin A 233 mg/dL (70-320)
[2021-11-08 23:06] LABS: Transglutaminase Ab IgG <1.0 U/mL; Transglutaminase IgA <1.0 U/mL
== END 2021-11-08 13:15 | disposition home or self-care (01) | DRG 812 ==
LOC: HO.ED 17:58 → HO.EDOVER 18:02 → HO.IMC 18:54
PROVIDERS: Admitting Provider Family Medicine; Emergency Provider Internal Medicine; PCP Physician Assistant; Visit Provider Family Medicine
DX: D50.9 Iron deficiency anemia, unspecified (principal); F90.9 Attention-deficit hyperactivity disorder, unspecified type; F32.A Depression, unspecified; Z96.641 Presence of right artificial hip joint; Z88.2 Allergy status to sulfonamides; Z79.899 Other long term (current) drug therapy
CPT/HCPCS: 36415; 36430; 71045; 80048; 82272; 82784; 83540; 83880; 84484; 85025; 85027; 86364; 86850; 86900; 86901; 86920; 86923; 93005; 97161; 99219; 99285; P9016